=== PATIENT | female | born 1995 | race Two or more races ===

== ENCOUNTER 2025-02-20 14:19 | Outpatient (AMB) | payer OTHER, SELFPAY ==
[2025-02-20 14:28] VITALS: BP 96/62; PULSE 80; O2SAT 98; BMI 30.4
--- NOTE | 2025-02-20 14:28 | A.OFFVIS_ITS ---
Vital Signs 02/20/25 14:28 Height 4 ft 10 in Weight 145 lb 8.081 oz BMI 30.4 BP 96/62 Blood Pressure Location Rt brachial Position Sitting Pulse 80 Pulse Source Pulse Oximeter Pulse Oximetry (%) 98 Oxygen Delivery Method Room Air Intake Visit Reasons: Asthma Allergies No Known Allergies Allergy (Verified 02/20/25 14:31) HPI Comments Details: The patient is a 29 year woman currently in her 1st trimester with a known history of asthma. the patient has had lifelong asthma. She does have allergy triggers in addition to exacerbations with a exposure to any viral syndromes. She has been better on Symbicort. She does have a rescue inhaler and she does use it couple times a week. Currently she is in her 1st trimester . She has 1 healthy child and she did fairly well during that . Currently patient does complaint of worsening chest tightness with any activity along with the other triggers. Denies any significant reflux disease at this time. Will monitor for that during her as it progresses. For now will hold off on PFTs and chest x-rays due to her . Will plan to do blood work to assess her asthma phenotype. The patient also will be continue her current respiratory regimen as it is safe during her . I do believe the singular be a good option to try to stabilize her asthma further with the safe medication category B for . 08/27/2023 the patient is here for a pulmonary follow-up visit. Overall she is doing very well. She is using the Symbicort twice a day. Has not required her rescue inhaler. The patient continues to do well with the currently in her 2nd trimester. We did review her blood work. She has severe allergies to both cats and dogs. Although allergies known does the most significant. She needs to minimize exposure to cats and dogs specially due to the severity of her reaction. The patient also would benefit from a and EpiPen after she delivers her baby. Patient can also consider biologic therapy such as Xolair as a good option to minimize severe allergic reactions. Will go ahead and follow in 3-4 months or sooner if any issues arise. 12/24/2023 the patient is here for a pulmonary follow-up visit. The patient has been doing better. She did have an asthma exacerbation. She did require her respiratory therapy more frequent. The patient continues on the Symbicort twice a day. She does have the nebulizer she has been using it more often. Now she is back to her baseline. She has no longer on prednisone. No additional imaging studies based on her . She is now 30 weeks' gestation. at this point will not going to make any medication changes. Although if her symptoms worsen she will call the office so we can further adjust her medications accordingly. She does have a peak flow and she can monitor the peak flows. If the peak flows drop from baseline then she is to call the office for further evaluation as well. 08/25/2024 the patient is here for a pulmonary follow-up visit. Overall she is doing well. She did give to healthy baby girl. She is still b reastfeeding. Continues use her Symbicort and also has a rescue medication. She also singular although she has not been using it as regularly. She did have 1 episode at the gym where all of a sudden she felt she could not breathe and felt nauseous. She was able to use her rescue inhaler and did help her symptoms. Although she became very concerned because her symptoms were significant. We did teach her how to use the EpiPen. She has not required it. At this point she will continue to breastfeed. Will plan to follow-up in 6 months I which time if she is done will talk about biologic therapies. I do believe that with her significant allergies and ongoing need for her albuterol suggesting that she has uncontrolled asthma that she will benefit from biologic therapies at this time. Will request blood work closer to the time and we will follow-up with her in 6 months. If she has any worsening symptoms prior to that she will call for an earlier assessment. 02/20/2025 the patient is here for a pulmonary follow-up visit. She continues to do very well. Her baby is healthy. The patient has been using her Symbicort. Also needs her rescue inhaler refilled. She does have a nebulizer. Typically she gets sick more in the winter when she is exposed to viral syndromes. Now the springtime she typically does okay. Her blood work did demonstrating an elevated IgE level her eosinophils have been normal. Seems like her respiratory therapy seems to be holding her steady. She is concerned about using Singulair because of the risk of depression especially now caring for baby. That is okay. She can also consider using the singular seasonally if necessary. The patient denies any other complaints. Follow-up in a year's time. If she develops any worsening issues she will call for an earlier assessment. [facility] Medical History (Updated 01/24/25 @ 13:31 by Monica Carpenter) Chronic allergic rhinitis Constipation by delayed colonic transit Loss of consciousness Class 2 obesity with body mass index (BMI) of 36.0 to 36.9 in adult Asthma Surgical History (Updated 01/24/25 @ 13:31 by Monica Carpenter) History of laparoscopic cholecystectomy History of Family History (System 01/24/25 @ 13:31 by Monica Carpenter) Father Diabetes Mother Epilepsy Social History Housing: Apartment Alcohol intake: never Patient Tobacco Use Status: Never used Tobacco e-Cigarette/Vaping Use: Never Used Second Hand Smoke Exposure: No service: No Current occupational status: unemployed Cognitive needs: No Hearing needs: No Vision needs: No Review of Systems Const Denies chills, Denies fatigue, Denies fever(s), Denies weight gain and Denies weight loss Eyes Denies change in vision ENT Denies dizziness Card Denies chest pain, Denies leg edema, Denies lightheadedness, Denies palpi tations, Denies dyspnea on exertion, Denies orthopnea and Denies other Resp Denies cough, Denies dyspnea on exertion and Reports wheezing GI Denies hematochezia and Denies change in stool character Musc Denies abnormal gait, Denies muscle weakness, Denies numbness, Denies radiating pain into limb and Denies tingling Skin/Breast Denies rash Neuro Denies abnormal gait, Denies dizziness, Denies numbness and Denies tingling Endo Denies fatigue and Denies palpitations Rodrigue/Lymph Denies easy bruising Aller/Immun Reports wheezing Physical Exam Vital Signs: Last Vital Signs Pulse 80 02/20/25 14:28 BP 96/62 02/20/25 14:28 Pulse Ox 98 02/20/25 14:28 Oxygen Delivery Method Room Air 02/20/25 14:28 BMI result Body Mass Index 30.4 Const General: comfortable HEENT Head: Yes normocephalic Neck Neck: Yes supple Chest Chest palpation & inspection: normal inspection of the chest Resp Effort & Inspection: normal respiratory effort and No prolonged expiratory phase Auscultation: clear to auscultation bilaterally, no rhonchi and no wheezes Cardio Rate: regular rate Rhythm: regular rhythm Heart sounds: S1 normal heart sound present and S2 normal heart sound present GI Palpation (GI): Soft to palpation Skin General skin exam: no rashes or lesions noted Extrem General: Yes no clubbing, cyanosis or edema Assessment & Plan Assessment & Plan (1) Asthma: Code(s): J45.909 - Unspecified asthma, uncomplicated Category: Medical Qualifiers: Asthma severity: moderate Asthma persistence: persistent Asthma complication type: uncomplicated Qualified Code(s): J45.40 - Moderate persistent asthma, uncomplicated (2) Chronic allergic rhinitis: Code(s): J30.9 - Allergic rhinitis, unspecified Category: Medical Plan continue Symbicort JULIO as needed hold singulair for now EPI pen provided F/U 12 months Medications: Changed From budesonide-formoterol 80-4.5 mcg/actuation 1 inh inhalation BID 30 days 10.2 grams 1RF To budesonide-formoterol 80-4.5 mcg/actuation 2 inhalations inhalation BID 10.2 grams 11RF 30 days Refilled Ventolin HFA 90 mcg/actuation (albuterol sulfate) 2 puffs inhalation Q6H PRN 8 grams 11RF shortness of breath or wheezing 30 days NS albuterol sulfate 2.5 mg (3 mL) inhalation Q6H PRN 180 mL 11RF shortness of breath or wheezing 30 days Coding Level of Care Code Est Pt Level 4 (69881) Diagnoses Moderate persistent asthma without complication J45.40 Asthma severity: moderate Asthma persistence: persistent Asthma complication type: uncomplicated Chronic allergic rhinitis J30.9 Time Spent (min) 16
--- OUTSIDE RECORDS SUMMARY | 2025-02-20 17:32 | XMS_ITS | Clinical Summary ---
Author Organization [employer] Address [address] [place] [address] Care Team Providers Care Finger Cobbler Name Role Phone Unavailable Primary Care Provider Unavailabl e Immunizations Name Administration Dates Next Due DTP 05/25/1997, 4,01/23/1994,06/18 HPV, Quadrivalent 04/06/2008,12/06/2007,08/30/20 07 Hep B, Adolescent or Pediatric 06/17/1998,1996,05/25/1997 Hib (PRP-T) 08/12/1994,01/23/1994,1993 IPV 05/25/1997, 4,01/23/1994,06/18 Influenza Injectable Quadriv alant Preservative Free IIV4 MDCK 07/20/2023,08/10/2018 Influenza, IIV3, injectable 07/15/2017,1 12/11/2007,12/06/2007,09/17 Influenza, Split (incl. nica fied surface antigen) 09/24/2010 MMR 05/25/1997,08/12/1994 Meningococcal MCV4P [id number] 08/30/2007 Novel [id number], all formulations 09/18/2009 Pfizer Covid-19 Vaccine 12+ 11/09/2023 Tdap 10/25/2023, 8,04/15/2017,05/06 Varicella 09/18/2009,12/16/2004 Social History Tobacco Use Types Packs/Day Years Used Date Smoking Tobacco: Never Assessed Comments Unknown Sex and Gender Information Value Date Recorded Sex Assigned at Female 09/07/2022 10:18 AM EDT Legal Sex Female 10:18 AM EDT Gender Identity Female 09/07/2022 10:18 AM EDT Sexual Orientation Straight 09/07/2022 10 :18 AM EDT Plan of Treatment Health Maintenance Due Date Last Done Comments Depression Screening 1993 HIV Screening 1993 SDOH Screening 1993 Alcohol/Substance Use Screening 2005 Tobacco Screening 2005 Family Planning (PISQ) 2008 Hepatitis C Screening 2011 Pap Smear 2014 Cervical Cancer Screening 2023 HPV/Cotest 2023 COVID-19 Vaccine ( season) 2024 11/09/2023, 03/20/2021, 02/20/2021 Influenza Vaccine (#1) 2024 , 08/10/2018, 07/15/2017, Additional history exists DTaP/Tdap/Td Vaccines (9 - Td or Tdap) 10/25/2033 10/25/2023, 09/08/2018, 04/15/2017, Additional history exists Zoster Vaccines (1 of 2) 2043 RSV Patients and Patients Aged 60 years or older (1 - 1-dose 75+ series) 2068 HIB Vaccines Completed 08/12/1994, 01/06, 1993 IPV Vaccines Completed 05/25/1997, 03/1994, 01/23/1994, Additional history exists Hepatitis B Vaccines Completed 06/17/1998, 06/27/1997, 05/25/1997 Meningococcal Vaccine Aged Out 08/30/2007 No edil kacey eligible based on patient's age to complete this topic HPV Vaccines Completed 04/06/2008, 11/09, 08/30/2007 Hepatitis A Vaccines Aged Out No long er eligible based on patient's age to complete this topic Pneumococcal Vaccine: Pediatrics (0 to 5 Years) and At-Risk Patients (6 to 49) Years) Aged Out No longer eligible based on patient's age to complete this topic RSV under 20 months Aged Out No longe r eligible based on patient's age to complete this topic Rotavirus Vaccines Aged Out No longer eligible based on patient's age to complete this topic Insurance [facility]
--- OUTSIDE RECORDS SUMMARY | 2025-02-20 17:32 | XMS_ITS | Clinical Summary ---
Author Organization [facility] Address [address] [place] [address] Phone Care Team Providers Care Core Inspector Name Role Phone Amber Lomax MD Primary Care Provider [phone] Allergies Active Allergy Reactions Criticality Noted Date Comments Cat Dander Wheezing 07/06/2023 asthma Clindamycin Swelling 11/10/2024 Dog Dander Wheezing 07/06/2023 asthma Medications UNABLE TO FIND Med Name: IUD'S IU By intrauterine route. Active PNV no.95/ferrous fum/folic ac ( ORAL) Vit-Fe Fumarate-FA ( Plus) 27-1 MG Tab Sig: TAKE 1 TABLET BY MOUTH EVERY DAY Active hydrOXYzine pamoate (VISTARIL) 25 mg capsule Take 1 Capsule by mouth at bedtime as needed for Anxiety (and sleep). 03/14/20 24 Active norethindrone (DANDY,VIKA, RUTH,MICRON OR) 0.35 mg tablet Take 1 Tablet by mouth daily for 360 days. 01/31/20 24 Active pyridoxine (VITAMIN B-6) 25 mg tablet Take 1 Tablet by mouth 4 times daily (before meals and nightly) for 360 days. 08/20/20 23 Active aspirin 81 mg EC tablet Take 2 Tablets by mouth daily. 08/17/20 23 Active loratadine (CLARITIN) 10 mg tablet Take 1 Tablet by mouth daily for 360 days. 07/06/20 23 Active EPINEPHrine (EPIPEN) 0.3 mg/0.3 mL injection INJECT 0.3 MG INTRAMUSCULARLY EVERY 10 MINUTES NEEDED FOR ANAPHYLAXIS FOR 30 DAYS 08/25/20 24 Active cholecalcifero l (VITAMIN D-3) 50 mcg (2,000 unit) capsule Take 1 capsule (2,000 Units total) by mouth 1 (one) time each day. 90 capsule 3 11/06/20 24 025 Active docusate sodium (COLACE) 100 mg capsule Take 1 capsule (100 mg total) by mouth 2 (two) times a day. 180 each 3 11/06/20 24 025 Active ferrous sulfate 325 mg (65 mg elemental iron) tablet TAKE 1 TABLET BY MOUTH EVERY OTHER DAY 45 tablet 1 11/23/19 25 Active Active Problems Problem Noted Date Diagnosed Date Elevated platelet count 07/30/2023 Overview (09/26/2024): 07/09/23 platelets 450 07/27/23 platelets 450 12/07/22-platlets 345-resolved Hemorrhoids during 07/28/2023 Overview (09/26/2024): Colace, witch janet and Preparation H encouraged Reviewed comfort measures 08/17- resolved Elevated WBC count 07/23/2023 Overview (09/26/2024): Lab Results Component Value Date WBC 17.4 07/09/2023 HGB 12.3 07/09/2023 HCT 36.3 07/09/2023 MCV 84.0 07/09/2023 PLTCT 450 07/09/2023 Repeat Urine culture negative, 07/23/2023 repeat CBC ordered. Lab Results Component Value Date WBC 15.5 07/27/2023 HGB 11.4 07/27/2023 HCT 34.2 07/27/2023 MCV 84.7 07/27/2023 PLTCT 450 07/27/2023 Alpha thalassemia silent carrier 07/20/2023 Overview (09/26/2024): FOB testing- positive Reproductive risk, not at increased risk for alpha thalalsemia. Syncope 07/20/2023 Overview (09/26/2024): 07/20/2023 patient reports feeling weak and passing out a few times, last time was 3 days ago. She was not seen in the ED. Referral to PCP ordered. 10/13/23- denies further syncopal episodes Depression affecting pregnan cy in first trimester, antepartum 07/06/2023 Overview (09/26/2024): Patient tearful; /FOB left patient after 14yrs marriage. Looking for therapist. 07/20/2023 at IP- EPDS 24, declines SI/HI. Offered referral for therapy she declines, main concern is lack of sleep. Vistaril ordered. Offered antidepression medicine and she declines. 08/17- improving- denies SI/HI, continues to declines meds or referral Obesity in 07/06/2023 Overview (09/26/2024): HgbA1C and 1 hour GTT at initial labs - 07/09 HGBA1C 5.3, 1 hr 91 ASA 162mg at 12 weeks until delivery - Ordered 08/17 Detailed anatomy ultrasound- scheuled Repeat GTT 24-28 weeks if early is normal Pre-preg BMI 35-39.9: NST weekly at 37 weeks Pre-preg BMI >40: NST weekly at 34 weeks Pre-preg BMI >45: NST weekly at 32 weeks Growth US at 32 and 36 weeks for BMI >40 BMI of 50 by 28wks transfer to [facility] DVT prophylaxis- Lovenox if CS and BMI >35 Urinary tract infection in m other during first trimester of 05/28/2023 Overview (09/26/2024): Ecoli.- Treated SAGAR in 4 weeks- mix growth Primary oligomenorrhea 05/19/2023 Overview (09/26/2024): Last Assessment & Plan: At this time, clearly secondary to . However, based on history, she does likely meet criteria for PCOS. Lab testing to be deferred until after . 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 If labs positive patient will need MFM consult. 07/26/2023 labs ordered Encounters Date Type Department Care Team Description 12/12/2024 6:20 PM EST - 12/12/2024 11:59 PM EST Hospital Encounter Radiology Department - [address] [phone] Menorrhagia with irregular cycle Discharge Disposition: Home or Self Care from Last 3 Months Immunizations Name Administration Dates Next Due Influenza Quadravalent, MDCK , 0.5ml, preservative free (Flucelvax) 6mo and older 07/20/2023,08/10/2018 Tdap Tetanus diptheria acell ular pertussis (Boostrix; Adacel) 7yo and older 10/25/2023,09/08/2018,04/15/2017 Surgical History Surgery Date Site/Laterality Comments CHOLECYSTECTOMY 2012 PROCEDURE: HISTORICAL CHOLECYSTECTOMY CHOLECYSTECTOMY PROCEDURE: MT LAPAROSCOPY SURG CHOLECYSTECTOMY SECTION PROCEDURE: MT DELIVERY ONLY; COMMENT: 2018 WISDOM TOOTH EXTRACTION 04/2023 PROCEDURE: HISTORICAL WISDOM TEETH EXTRACTION Medical History Medical History Date Comments Asthma DX:Asthma Anemia in 06/25/2017 DX:Anemia in History of insulin resistance DX :History of insulin resistance; COMMENT: started when she was [age]yo Family History Medical History Relation Name Comments Breast cancer Aunt Other: shunt in brain to [place] in fluid Brother Diabetes Father Other: bipolar typeII Father Other: of overdose Maternal Grandfather Other: of HIV Maternal Grandmother Arthritis Mother Asthma Mother Breast cancer Other pt reports mul tiple relatives on mother's side with breast cancer Other: of stroke Paternal Grandfather Other: of stroke Paternal Grandmother Breast cancer Sister Cancer of Small Bowel Neg Hx Colon cancer Neg Hx Kidney cancer Neg Hx Ovarian cancer Neg Hx Pancreatic cancer Neg Hx Uterine cancer Neg Hx Relation Name Status Comments Aunt Brother Alive Father Alive Maternal Grandfather Maternal Grandmother Mother Alive Other Paternal Grandfather Paternal Grandmother Sister Alive Social History Tobacco Use Types Packs/Day Years Used Date Smoking Tobacco: Never Smokeless Tobacco: Never Alcohol Use Standard Drinks/Week Comments No 0 (1 standard drink = 0.6 oz pur e alcohol) Comments Unknown Sex and Gender Information Value Date Recorded Sex Assigned at Not on file Legal Sex Female 10:06 PM EST Gender Identity Not on file Sexual Orientation Not on file Obstetrics History Para Term AB IAB SAB Ectopic Multiple Livin g Live Births 9 3 3 6 6 3 3 Date Outcome GA Total Labor Labor/2nd/3rd Weight Sex Type Anes PTL Maureen A1 A5 Name Clin SAB Decea sed SAB Decea sed SAB Decea sed SAB Decea sed SAB Decea sed SAB Decea sed 2016 Term 40w 2d 3317 g (117 oz) F CS-Un spec Epidur al N Livin g 8 9 Dailan ys Michael Rothman Complications:Failure to Pro agapito in Second Stage Delivery Location:[facility] 2018 Term 40w 6d 3856 g (136 oz) M CS-Un spec Spinal Livin g [address] Lynette benavidez [place] Delivery Location:[facility] 2023 Term 39w 0d 3459 g (122 oz) F CS-LT ranv Spinal N Livin g Rick Del Real MD Complications:None Delivery Location:[facility] Last Filed Vital Signs Vital Sign Reading Time Taken Comments Blood Pressure 105/71 11/06/2024 2:27 PM EST Pulse 83 06/09/2024 1:23 PM EDT Temperature - - Respiratory Rate - - Oxygen Saturation - - Inhaled Oxygen Concentration - - Weight 73.9 kg (163 lb) 11/06/2024 2:27 PM EST Height 147.3 cm (4' 10 ) 11/06/2024 2:27 PM EST Body Mass Index 34.07 11/06/2024 2:27 PM EST Plan of Treatment Health Maintenance Due Date Last Done Comments Cholesterol Screening (Lipid Panel) 10/10/2022 HIV Screening 10/10/2022 Social Influencers of Health Screening 10/10/2022 COVID-19 Vaccine ( season) 2024 11/09/2023, 03/20/2021, 02/20/2021 Depression Screening 01/23/2025 01/24/2024 Cervical Cancer Screening: HPV 11/06/2029 11/06/2024, 03/26/2021 DTaP,Tdap,and Td Vaccines (9 - Td or Tdap) 10/25/2033 10/25/2023, 09/08/2018, 04/15/2017, Additional history exists HIB Vaccines Completed 08/12/1994, 01/06, 1993 IPV Vaccines Completed 05/25/1997, 03/1994, 01/23/1994, Additional history exists MMR Vaccines Completed 05/25/1997, 08/12/1994 Hepatitis B Vaccines Completed 06/17/1998, 06/27/1997, 05/25/1997 Meningococcal ACWY Vaccine Aged Out 08/30/2007 N o longer eligible based on patient's age to complete this topic HPV Vaccines Completed 04/06/2008, 11/09, 08/30/2007 Varicella Vaccines Completed 09/18/2009, 12/16/2004 Hepatitis C Screening Completed 07/09/2023 Influenza Vaccine Completed 08/17/2024, , 08/10/2018, Additional history exists Hepatitis A Vaccines Aged Out No long er eligible based on patient's age to complete this topic Meningococcal B Vaccine Aged Out No l onger eligible based on patient's age to complete this topic Pneumococcal Vaccine: Pediatrics (0 to 5 Years) and At-Risk Patients (6 to 64 Years) Aged Out No longer eligible based on patient's age to complete this topic RSV Immunization Patients Under 20 months Aged Out No longer eligible based on patient's age to complete this topic Procedures Procedure Name Priority Date/Time Associated Diagnosis Comments US DUPLEX ABDOMEN/PELVIS/RETRO COMPLETE Routine 12/12/2024 6:57 PM EST Menorrhagia with irregular cycle US PELVIS NON OB COMPLETE W TRANSVAGINAL Routine 12/12/2024 6:57 PM EST Menorrhagia with irregular cycle HPV WITH REFLEX GENOTYPE Routine 11/06/2024 3:53 PM EST Encounter for gynecological examination without abnormal finding DEPRESSION SCREENING Routine 01/24/2024 HEPATITIS C SCREENING Routine 07/09/2023 from Last 3 Months or Most Recently Relevant to Health Maintenance Results * US Pelvis Non OB Complete w Transvaginal (12/12/2024 6:57 PM EST) Anatomical Region Laterality Modality Body, Pelvis Ultrasound 12/13/2024 8:02 AM EST Impressions 12/13/2024 8:05 AM EST Unremarkable sonographic appearance of the uterus and ovaries. -------- FINAL REPORT -------- Dictated By: Yosi Giron Dictated Date: 12/13/2024 08:02 ET Assigned Physician: Yosi Giron Reviewed and Electronically Signed By: Yosi Giron Signed Date: 12/13/2024 08:05 ET Workstation ID: [id number] Transcribed By: Self Edit Transcribed Date: 12/13/2024 08:02 ET Narrative 12/13/2024 8:05 AM EST EXAM(s): ?? US PELVIS NON OB COMPLETE W TRANSVAGINAL, US DUPLEX ABDOMEN/PELVIS/RETRO COMPLETE COMPARISON: None HISTORY: pelvic pain FINDINGS: UTERUS: The uterus is retroflexed and measures 6.6 x 4.2 x 4.8 cm, volume of 69.7 cm3, and demonstrates homogeneous ??myometrial echotexture. The endometrial echocomplex measures 0.2 cm in thickness. ??Intrauterine device terminates at 0.3 cm from the fundic end of the endometrial cavity. RIGHT OVARY: 3.1 x 1.8 x 1.8 cm, volume of 5.3 cm3. Normal follicular appearance. Normal arterial and venous flow is demonstrated with color and spectral Doppler. LEFT OVARY: 3.4 x 2.5 x 1.6 cm, volume of 7.1 cm3. Normal follicular appearance. Normal arterial and venous flow is demonstrated with color and spectral Doppler. PELVIS: No free fluid. Procedure Note Yosi Giron MD - 12/13/2024 EXAM(s): US PELVIS NON OB COMPLETE W TRANSVAGINAL, US DUPLEXABDOMEN/PELVIS/RETRO COMPLETE COMPARISON: None HISTORY: pelvic pain FINDINGS: UTERUS: The uterus is retroflexed and measures 6.6 x 4.2 x 4.8 cm, volumeof 69.7 cm3, and demonstrates homogeneous myometrial echotexture. Theendometrial echocomplex measures 0.2 cm in thickness. Intrauterine deviceterminates at 0.3 cm from the fundic end of the endometrial cavity. RIGHT OVARY: 3.1 x 1.8 x 1.8 cm, volume of 5.3 cm3. Normal follicularappearance. Normal arterial and venous flow is demonstrated with color andspectral Doppler. LEFT OVARY: 3.4 x 2.5 x 1.6 cm, volume of 7.1 cm3. Normal follicularappearance. Normal arterial and venous flow is demonstrated with color andspectral Doppler. PELVIS: No free fluid. IMPRESSION: Unremarkable sonographic appearance of the uterus and ovaries. -------- FINAL REPORT -------- Dictated By: Yosi Giron Dictated Date: 12/13/2024 08:02 ET Assigned Physician: Yosi Giron Reviewed and Electronically Signed By: Yosi Giron Signed Date: 12/13/2024 08:05 ET Workstation ID: [id number] Transcribed By: Self Edit Transcribed Date: 12/13/2024 08:02 ET us Jayde Rosenberg CNM IMG US PROCEDURES Final Result * US Duplex Abdomen/Pelvis/Retro Complete (12/12/2024 6:57 PM EST) Anatomical Region Laterality Modality Body Ultrasound 12/13/2024 8:02 AM EST Impressions 12/13/2024 8:05 AM EST Unremarkable sonographic appearance of the uterus and ovaries. -------- FINAL REPORT -------- Dictated By: Yosi Giron Dictated Date: 12/13/2024 08:02 ET Assigned Physician: Yosi Giron Reviewed and Electronically Signed By: Yosi Giron Signed Date: 12/13/2024 08:05 ET Workstation ID: [id number] Transcribed By: Self Edit Transcribed Date: 12/13/2024 08:02 ET Narrative 12/13/2024 8:05 AM EST EXAM(s): ?? US PELVIS NON OB COMPLETE W TRANSVAGINAL, US DUPLEX ABDOMEN/PELVIS/RETRO COMPLETE COMPARISON: None HISTORY: pelvic pain FINDINGS: UTERUS: The uterus is retroflexed and measures 6.6 x 4.2 x 4.8 cm, volume of 69.7 cm3, and demonstrates homogeneous ??myometrial echotexture. The endometrial echocomplex measures 0.2 cm in thickness. ??Intrauterine device terminates at 0.3 cm from the fundic end of the endometrial cavity. RIGHT OVARY: 3.1 x 1.8 x 1.8 cm, volume of 5.3 cm3. Normal follicular appearance. Normal arterial and venous flow is demonstrated with color and spectral Doppler. LEFT OVARY: 3.4 x 2.5 x 1.6 cm, volume of 7.1 cm3. Normal follicular appearance. Normal arterial and venous flow is demonstrated with color and spectral Doppler. PELVIS: No free fluid. Procedure Note Yosi Giron MD - 12/13/2024 EXAM(s): US PELVIS NON OB COMPLETE W TRANSVAGINAL, US DUPLEXABDOMEN/PELVIS/RETRO COMPLETE COMPARISON: None HISTORY: pelvic pain FINDINGS: UTERUS: The uterus is retroflexed and measures 6.6 x 4.2 x 4.8 cm, volumeof 69.7 cm3, and demonstrates homogeneous myometrial echotexture. Theendometrial echocomplex measures 0.2 cm in thickness. Intrauterine deviceterminates at 0.3 cm from the fundic end of the endometrial cavity. RIGHT OVARY: 3.1 x 1.8 x 1.8 cm, volume of 5.3 cm3. Normal follicularappearance. Normal arterial and venous flow is demonstrated with color andspectral Doppler. LEFT OVARY: 3.4 x 2.5 x 1.6 cm, volume of 7.1 cm3. Normal follicularappearance. Normal arterial and venous flow is demonstrated with color andspectral Doppler. PELVIS: No free fluid. IMPRESSION: Unremarkable sonographic appearance of the uterus and ovaries. -------- FINAL REPORT -------- Dictated By: Yosi Giron Dictated Date: 12/13/2024 08:02 ET Assigned Physician: Yosi Giron Reviewed and Electronically Signed By: Yosi Giron Signed Date: 12/13/2024 08:05 ET Workstation ID: [id number] Transcribed By: Self Edit Transcribed Date: 12/13/2024 08:02 ET Jayde Rosenberg CNM IMG US PROCEDURES Final Result * HPV with reflex genotype (11/06/2024 3:53 PM EST) HPV Negative Negative LAB MICROBIOLOGY METHOD 11/10/2024 2:02 PM EST [facility] Brushing/Spatula Cervix uteri structure / Unknown 11/06/2024 3:53 PM EST 11/09/2024 7:41 AM EST Jayde Rosenberg [facility] MOLECULAR DIAGNOSTICS ORDER JILL Final Result [facility] [address] [place] [address], * Depression Screening (01/24/2024) Depression Screening abstracted Historical Provider HEALTH MAINTENANCE Final Result * Hepatitis C Screening (07/09/2023) Hepatitis C Screening abstracted Historical Provider HEALTH MAINTENANCE Final Result from Last 3 Months or Most Recently Relevant to Health Maintenance Insurance [facility] Care Teams Core Inspector Relationship Specialty Start Date End Date Amber Lomax MD [address] [place] [address] , [address] Physician [facility] [place] MD PCP - General Internal Medicine 09/06/18
== END 2025-02-20 15:04 | disposition home or self-care (01) ==
LOC: HO.HPS 14:19
PROVIDERS: PCP Internal Medicine; Visit Provider Hospitalist
DX: J45.40 Moderate persistent asthma, uncomplicated (principal); J30.9 Allergic rhinitis, unspecified
CPT/HCPCS: 99214

== ENCOUNTER → 2025-02-20 14:19 | Outpatient (BNVA) | payer OTHER, SELFPAY | PROVIDERS: PCP Internal Medicine; Visit Provider Hospitalist | DX: J45.40 Moderate persistent asthma, uncomplicated (principal); J30.9 Allergic rhinitis, unspecified | CPT/HCPCS: 99212 ==

== ENCOUNTER 2025-08-23 10:08 | Outpatient (AMB) | payer OTHER, SELFPAY ==
--- NOTE | 2025-08-23 10:15 | A.OFFPC_ITS ---
Vital Signs 08/23/25 10:22 Height 4 ft 10 in Weight 150 lb BMI 31.3 BP 128/72 Blood Pressure Location Lt brachial Position Sitting Pulse 70 Pulse Source Pulse Oximeter Temp 97.1 F Temp Source Temporal Artery Scan Pulse Oximetry (%) 98 Oxygen Delivery Method Room Air Intake Visit Reasons: Annual Exam Intake Note: Patient is here today for a physical. Spiral Weaver Required: No Panel Coverer: Not Required per policy Accompanied by: Self / Same As Patient Allergies No Known Allergies Allergy (Verified 08/23/25 10:37) Medication List - Last Reconciled 08/23/25 by Amber Lomax MD albuterol sulfate 2.5 mg (3 mL) inhalation Q6H PRN 30 days budesonide-formoterol 80-4.5 mcg/actuation 2 inhalations inhalation BID 30 days epinephrine (EpiPen 2-Arnie) 0.3 mg (0.3 mL) IM Q10M PRN 30 days hydroxyzine pamoate 25 mg PO DAILY PRN inhalational spacing device (Aerochamber MV spacer) As directed montelukast 10 mg PO BEDTIME nebulizers As directed PNV,calcium 09-gkne-cqxor acid 27 mg iron- 1 mg ( Vitamins Plus Low Iron) 1 tab PO DAILY Ventolin HFA 90 mcg/actuation (albuterol sulfate) 2 puffs inhalation Q6H PRN 30 days NS Tobacco use date assessed: 08/23/25 Dental Screening Dental Screen Date: 08/23/25 Did you have a dental visit in the last 12 months?: No Did you have a dental problem in the last 6 months where you did not have access to dental care?: No Was dental information given to patient?: Patient has dentist HPI HPI Comments History of Present Illness Details The patient is a 30-year-old female presenting for a wellness visit and management of insulin resistance. The patient has been experiencing challenges with weight loss due to insulin resistance, despite engaging in regular cardiovascular and weight training exercises. She has been on a sugar-free diet for a year and is concerned about the risk of developing diabetes. The patient reports mild depression with a PHQ-9 score of 3, showing slight improvement from previous evaluations. She has been managing her stress better, which has contributed to her improvement. Preventative care measures include a tetanus vaccination received in 2022, with the next due in 2032, and an influenza vaccination planned for this visit. - Tetanus vaccination administered in , next due in 2032 - Influenza vaccination scheduled for is visit [facility] Medical History Chronic allergic rhinitis Constipation by delayed colonic transit Loss of consciousness Class 2 obesity with body mass index (BMI) of 36.0 to 36.9 in adult Asthma Surgical History History of laparoscopic cholecystectomy History of Family History Father Diabetes Mother Epilepsy Social History Housing: Apartment Alcohol intake: never Patient Tobacco Use Status: Never used Tobacco e-Cigarette/Vaping Use: Never Used Second Hand Smoke Exposure: No service: No Current occupational status: unemployed Cognitive needs: No Hearing needs: No Vision needs: No Questionnaire PHQ-9 Over the last 2 weeks, how often have you been bothered by any of the following problems? 1. Little interest or pleasure in doing things: not at all 2. Feeling down, depressed, or hopeless: not at all 3. Trouble falling or staying asleep, or sleeping too much: several days 4. Feeling tired or having little energy: not at all 5. Poor appetite or overeating: several days 6. Feeling bad about yourself - or that you are a failure or have let yourself or your family down: not at all 7. Trouble concentrating on things, such as reading the newspaper or watching television: not at all 8. Moving or speaking so slowly that other people could have noticed. Or the opposite - being so fidgety or restless that you have been moving around a lot more than usual: several days 9. Thoughts that you would be better off or of hurting yourself in some way: not at all Total score: 3 Depression Screening Interpretation: Positive Depression Screening Follow-up: Existing condition and Follow-up Visit Requested Depression Screening Done: Yes 15654 - PHQ-9 Billing: Yes Source: Developed by Drs. Yoel Ochoa, Valencia Bernard, Corona Krishna and colleagues, with an educational smita from [employer]. Thrive Questionnaire Date Thrive assessed: 08/23/25 I am a: Patient What is your living situation today?: I have a steady place to live Within the past 12 months, did the food you bought not last and you didn't have the money to get more?: Never true Within the past 12 months, did you worry whether your food would run out before you got money to buy more?: Never true Do you have trouble paying for medicines?: No Do you have trouble getting transportation to medical appointments?: No Do you have trouble paying your heating and electricity bill?: No Do you have trouble taking care of your child, family member or friend?: No Do you have trouble with day-to-day activities such as bathing, preparing meals, shopping, managing finances, etc.?: No Are you currently unemployed and looking for a job?: No Are you interested in more education?: No Please select the resources that you would like help with: None Currently or been in a relationship where the following occur: No concerns reported THRIVE Score: 0 AUDIT C Alcohol Use Questionnaire (AUDIT-C) 1. How often do you have a drink containing alcohol?: Never 3. How often do you have six or more drinks on one occasion?: Never Total Score: 0 Score Reviewed/Action Taken: No DANDY-7 AMB Questionnaire DANDY-7 Date DANDY - 7 assessed: 08/23/25 Feeling nervous, anxious, or on edge: 0 = Not at all Not being able to stop or control worryin = Not at all Worrying too much about different things: 0 = Not at all Trouble relaxin = Not at all Being so restless that it is hard to sit still: 0 = Not at all Becoming easily annoyed or irritable: 0 = Not at all Feeling afraid as if something awful might happen: 0 = Not at all Total DANDY-7 score (0-4 normal; 5-9 mild; 10-14 moderate; 15-21 severe): 0 Source: Developed by Drs. Yoel Ochoa, Valencia eBrnard, Corona Krishna and colleagues, with an educational smita from [employer]. DANDY-7 Assessment Billing DANDY-7 Assessment Tool: DANDY-7 Assessment 59058 Review of Systems Const All systems reviewed & are unremarkable except as noted in HPI and below Card Denies chest pain at rest, Denies chest pain with activity, Denies edema, Denies irregular heart rhythm, Denies claudication, Denies dyspnea, Denies dyspnea on exertion, Denies orthopnea, Denies paroxysmal nocturnal dyspnea and Denies slow heart rate Resp Denies cough, Denies dyspnea and Denies dyspnea on exertion GI Denies abdominal pain, Denies change in bowel habits, Denies excessive flatus, Denies nausea and Denies vomiting Denies urinary incontinence, Denies urinary hesitancy and Denies urinary urgency Physical exam (Primary Care) Vital Signs: Last Vital Signs Temp 97.1 F 08/23/25 10:22 Pulse 70 08/23/25 10:22 BP 128/72 08/23/25 10:22 Pulse Ox 98 08/23/25 10:22 Oxygen Delivery Method Room Air 08/23/25 10:22 BMI result Body Mass Index 31.3 BMI Assessment/Plan discussion: High BMI High, discussed plan: lifestyle, weight reduction, dietary and physical activity Tobacco/Smoking Status: Tobacco use Status Tobacco use date assessed 08/23/25 08/23/25 10:25 Patient Tobacco Use Status Never used Tobacco 08/23/25 10:15 e-Cigarette/Vaping Use Never Used 08/23/25 10:15 PHQ-9: PHQ-9 Score PHQ-9: Total score 3 08/23/25 10:53 Depression Screening Interpretation: Positive Depression Screening Follow-up: Existing condition and Follow-up Visit Requested Thrive Assessment: Date of Thrive Assessment Date Thrive assessed 08/23/25 08/23/25 10:25 Currently or been in a relationship where the following occur: No concerns reported [facility] Head: Yes normal to inspection, Yes normocephalic and Yes atraumatic Ears: external ears normal Eyes General: appearance normal, both eyes and all related structures Eyelids: Yes eyelids normal Conjunctivae: conjunctivae normal Neck Neck: Yes normal visual inspection and Yes supple Resp Effort & Inspection: normal respiratory effort Auscultation: clear to auscultation bilaterally Cardio Jugular venous distension: no JVD Rate: regular rate Rhythm: regular rhythm Heart sounds: S1 normal heart sound present and S2 normal heart sound present GI Inspection: Yes normal to inspection Palpation (GI): Soft to palpation and nontender Auscultation: normal bowel sounds Skin General skin exam: no rashes or lesions noted Neuro General: no focal motor deficits Extrem General: Yes full ROM Psych Appearance: grossly normal Office Procedures Flu Questionnaire Does the patient have a severe egg allergy?: No Does the patient have severe life threatening allergies?: No Does the patient have a fever or illness today?: No Has the patient ever had Guillain-Auburn Syndrome?: No Has the patient ever had any past reaction to a flu shot?: No Immunizations Fluarix [id number] (PF) 45 mcg (15 mcg x 3)/0.5 mL IM syringe Performing Provider: Amber Lomax MD [place] [facility] Administered by: MILA Martins on 08/23/25 10:53 Dose Route Admin Location Dispensed Lot Number Expiration Date NDC [place] [employer] 0.5 mL IM Left Deltoid 0.5 mL [id number] 05/07/26 51287-934-05 [employer] VIS Given Date VIS Provided VIS Publication Date 08/23/25 Single Vaccine 24 Eligibility Eligibility Date Funding Source Not [facility] Eligible 08/23/25 Private Coding Level of Care Code Est Pt Prev Care 18-39y(21809) Diagnoses Physical exam Z00.00 Additional Codes DANDY-7 Assessment Billing - DANDY-7 Assessment Tool: DANDY-7 Assessment 06732 ([id number]) PHQ-9 - 75151 - PHQ-9 Billing: Yes ([id number]) Time Spent (min) 30 Assessment & Plan Assessment & Plan (1) Physical exam: Code(s): Z00.00 - Encounter for general adult medical examination without abnormal findings Category: Medical Plan Plan 1. Encounter for general adult medical examination without abnormal findings Z00.00 Repeat in a year. 2. Depression, unspecified F32.A The patient is experiencing mild depression with a PHQ-9 score of 3, showing slight improvement. She is advised to continue stress management strategies, including taking breaks and relaxation techniques. Orders: Orders Comprehensive [place]. Panel Fast Today Z00.00 - Encounter for general adult medical examination without abnormal findings Lipid Panel Today Z00.00 - Encounter for general adult medical examination without abnormal findings Influenza 4514-1475 Immunization Today Z23 - Encounter for immunization Medications: New metformin 500 mg PO DAILY 90 tabs 1RF 90 days
[2025-08-23 10:22] VITALS: BP 128/72; PULSE 70; TEMP 36.2; O2SAT 98; BMI 31.3
--- OUTSIDE RECORDS SUMMARY | 2025-08-23 12:13 | XMS_ITS | Clinical Summary ---
Author Organization [employer] Address [address] [facility] [address] [place] [address] Care Team Providers Care Clipper Machine Operator Name Role Phone Unavailable Primary Care Provider Unavailabl e Immunizations Immunization Administration Dates Next Due DTP 05/25/1997, 4,01/23/1994,06/18 HPV, Quadrivalent 04/06/2008,12/06/2007,08/30/20 07 Hep B, Adolescent or Pediatric 06/17/1998,1996,05/25/1997 Hib (PRP-T) 08/12/1994,01/23/1994,1993 IPV 05/25/1997, 4,01/23/1994,06/18 Influenza Injectable Quadriv alant Preservative Free IIV4 MDCK 07/20/2023,08/10/2018 Influenza, IIV3, injectable 07/15/2017,1 12/11/2007,12/06/2007,09/17 Influenza, Split (incl. nica fied surface antigen) 09/24/2010 MMR 05/25/1997,08/12/1994 Meningococcal MCV4P ACYW-135 08/30/2007 Novel [id number]-C2L2-85, all formulations 09/18/2009 Pfizer Covid-19 Vaccine 12+ [...] 1993 HIV Screening 1993 SDOH Screening 1993 Disability Screening 1993 Alcohol/Substance Use Screening 2005 Tobacco Screening 2005 Family Planning (PISQ) 2008 Hepatitis C Screening 2011 Pap Smear 2014 Cervical Cancer Screening 2023 HPV/Cotest 2023 COVID-19 Vaccine ( season) 2025 11/09/2023, 03/20/2021, 02/20/2021 Influenza Vaccine (#1) 2025 , 08/10/2018, 07/15/2017, Additional history exists DTaP/Tdap/Td [...] Years) and At-Risk Patients (6 to 49) Years Aged Out No longer eligible based on patient's age to complete this topic RSV under 20 months Aged Out No longe r eligible based on patient's age to complete this topic Rotavirus Vaccines Aged Out No longer eligible based on patient's age to complete this topic Insurance [facility] (O) N PARTIAL
--- OUTSIDE RECORDS SUMMARY | 2025-08-23 12:13 | XMS_ITS | Clinical Summary ---
Author Organization [facility] Address [address] [place] [address] Phone Care Team Providers Care Dusting And Brushing Machine Operator Name Role Phone Amber Lomax MD Primary Care Provider [phone] Allergies Active Allergy Reactions Criticality Noted Date [...] DAY 45 tablet 1 11/23/19 25 Active M-Kandis Plus 27 mg iron- 1 mg tabletIndicati ons:Other specified health status TAKE 1 TABLET BY MOUTH EVERY DAY 90 tablet 3 07/22/20 25 Active Active Problems Problem Noted Date Diagnosed Date Elevated platelet count 07/30/2023 Overview (09/26/2024): 07/09/23 platelets 450 07/27/23 platelets 450 12/07/22-platlets 345-resolved Hemorrhoids during 07/28/2023 Overview (09/26/2024): albert Aguilera and Preparation H encouraged Reviewed comfort measures [...] 14yrs marriage. Looking for therapist. 07/20/2023 at - EPDS 24, declines SI/HI. Offered referral for [...] BMI of 50 by 28wks transfer [place] [facility] [place] DVT prophylaxis- Lovenox if CS and BMI [...] will need MFM consult. 07/26/2023 labs ordered Immunizations Immunization Administration Dates Next Due Influenza Quadravalent, MDCK , 0.5ml, preservative free (Flucelvax) 6mo and older 07/20/2023,08/10/2018 Tdap Tetanus diptheria acell ular pertussis (Boostrix; Adacel) 7yo and older 10/25/2023,09/08/2018,04/15/2017 Surgical History Surgery Date Site/Laterality Comments CHOLECYSTECTOMY 2012 PROCEDURE: HISTORICAL CHOLECYSTECTOMY CHOLECYSTECTOMY PROCEDURE: [place] LAPAROSCOPY SURG CHOLECYSTECTOMY SECTION PROCEDURE: [place] DELIVERY ONLY; COMMENT: 2018 WISDOM TOOTH EXTRACTION [...] Sexual Orientation Not on file Obstetrics History * This document contains information received from the source organization and may not represent a complete record from that organization. Para Term AB IAB SAB Ectopic Multiple Livin g Live Births 9 3 3 3 3 Date Outcome GA Total Labor Labor/2nd/3rd Weight Sex Type Anes PTL Maureen A1 A5 Name Clin 2016 Term 40w 2d 3317 g (117 oz) F CS-Un spec Epidur al N Livin g 8 9 Dailan gladis Rothman Complications:Failure to Pro agapito in Second Stage Delivery [facility] 2018 Term 40w 6d 3856 g (136 oz) M CS-Un spec Spinal Livin g [address] Lynette zazueta Delivery Location:[facility] 2023 Term 39w 0d 3459 g (122 oz) F CS-LT ranv Spinal N Livin g Rick Del Real MD Complications:None Delivery Location:[facility] Last Filed Vital Signs Vital [...] 11/06/2024 2:27 PM EST Plan of Treatment Upcoming Encounters Date Type Department Care Team (Late st Contact Info) Description 08/27/2025 11:00 AM EDT Office Visit Obstetrics and Gynecology [address] [phone] Nisha Clahoun, [facility] [address], [place] Health Maintenance Due Date Last Done Comments Cholesterol Screening (Lipid Panel) 10/10/2022 HIV Screening 10/10/2022 Social Influencers of Health Screening 10/10/2022 Depression Screening 11/08/2024 01/24/2024 COVID-19 Vaccine ( season) 2025 11/09/2023, 03/20/2021, 02/20/2021 Influenza Vaccine (#1) 2025 , 07/20/2023, 08/10/2018, Additional history exists Cervical Cancer Screening: HPV 11/06/2029 11/06/2024, 03/26/2021 DTaP,Tdap,and Td Vaccines (9 - Td or Tdap) 10/25/2033 10/25/2023, 09/08/2018, 04/15/2017, Additional history exists RSV Immunization Adult Patients (1 - 1-dose 75+ series) 2068 HIB [...] 09/18/2009, 12/16/2004 Hepatitis C Screening Completed 07/09/2023 Hepatitis A Vaccines Aged Out No long er eligible based on patient's age to complete this topic Meningococcal B Vaccine Aged Out No l onger eligible based on patient's age to complete this topic Pneumococcal Vaccine: Pediatrics (0 to 5 Years) and At-Risk Patients (6 to 49 Years) Aged Out No longer eligible based on patient's age to complete this topic RSV Immunization Patients Under 20 months Aged Out No longer eligible based on patient's age to complete this topic Procedures Procedure Name Priority Date/Time Associated Diagnosis Comments HPV WITH REFLEX GENOTYPE Routine 11/06/2024 3:53 PM EST Encounter for gynecological examination without abnormal finding DEPRESSION SCREENING Routine 01/24/2024 HEPATITIS C SCREENING Routine 07/09/2023 from Last 3 Months or Most Recently Relevant to Health Maintenance Results * HPV with reflex genotype (11/06/2024 3:53 PM EST) HPV Negative Negative LAB MICROBIOLOGY METHOD 11/10/2024 2:02 PM EST [facility] Brushing/Spatula Cervix uteri structure / Unknown 11/06/2024 3:53 PM EST 11/09/2024 7:41 AM EST Jayde Rosenberg KJ LAB MOLECULAR DIAGNOSTICS ORDER JILL Final Result [facility] [address] [place] [address], * Depression Screening (01/24/2024) Depression Screening abstracted Historical Provider HEALTH MAINTENANCE Final Result * Hepatitis C Screening (07/09/2023) Hepatitis C Screening abstracted Historical Provider HEALTH MAINTENANCE Final Result from Last 3 Months or Most Recently Relevant to Health Maintenance Insurance [facility] [employer] Care Teams Dusting And Brushing Machine Operator Relationship Specialty Start Date End Date Amber Lomax MD [address] [place] [address] , [address] Physician Associ D/B/A: [facility] [place] PCP - General Internal Medicine 09/06/18
== END 2025-08-23 10:59 | disposition home or self-care (01) ==
LOC: HO.HMCH 10:09
PROVIDERS: PCP Internal Medicine; Visit Provider Internal Medicine
DX: Z23 Encounter for immunization (principal); Z00.00 Encounter for general adult medical examination without abnormal findings

== ENCOUNTER → 2025-08-23 10:08 | Outpatient (BNVA) | payer OTHER, SELFPAY | PROVIDERS: PCP Internal Medicine; Visit Provider Internal Medicine | DX: Z00.00 Encounter for general adult medical examination without abnormal findings (principal); F32.A Depression, unspecified; Z23 Encounter for immunization | CPT/HCPCS: 90471; 90656; 96127; 99395 ==

== ENCOUNTER 2025-08-28 10:15 | Outpatient (REF) | payer OTHER, SELFPAY ==
[2025-08-28 11:37] LABS: Alanine Aminotransferase 18 U/L (0-31); Albumin Level 4.6 g/dL (3.5-5.0); Alkaline Phosphatase 86 U/L (39-117); Anion Gap 9 (12-20); Aspartate Amino Transferase 18 U/L (5-31); Blood Urea Nitrogen 9 mg/dL (9-16); Calcium 9.2 mg/dL (8.4-10.2); Carbon Dioxide 26 mmol/L (22-29); Chloride 109 mmol/L (96-108); Cholesterol 200 mg/dL (<200); Estimated Glomerular Filt Rate > 60; HDL Cholesterol 49 mg/dL (>40); Potassium 4.0 mmol/L (3.3-5.1); Sodium 140 mmol/L (135-145); Total Protein 7.7 g/dL (6.5-8.0); Triglycerides 58 mg/dL (<150)
--- OUTSIDE RECORDS SUMMARY | 2025-08-28 12:08 | XMS_ITS | Clinical Summary ---
Author Organization [employer] Address [address] [facility] [address] [place] [address] Care Team Providers Care Job Press Feeder Name Role Phone Unavailable Primary Care Provider Unavailabl e Immunizations Immunization Administration Dates Next Due DTP 05/25/1997, 4,01/23/1994,06/18 HPV, Quadrivalent 04/06/2008,12/06/2007,08/30/20 07 Hep B, Adolescent or Pediatric 06/17/1998,1996,05/25/1997 Hib (PRP-T) 08/12/1994,01/23/1994,1993 IPV 05/25/1997, 4,01/23/1994,06/18 Influenza Injectable Quadriv alant Preservative Free IIV4 MDCK 07/20/2023,08/10/2018 Influenza, IIV3, injectable 07/15/2017,1 12/11/2007,12/06/2007,09/17 Influenza, Split (incl. nica fied surface antigen) 09/24/2010 MMR 05/25/1997,08/12/1994 Meningococcal MCV4P ACYW-135 08/30/2007 Novel [id number], all formulations 09/18/2009 Pfizer Covid-19 Vaccine 12+ [...] patient's age to complete this topic Insurance [facility] (O) N PARTIAL
== END 2025-08-28 10:16 | disposition home or self-care (01) ==
LOC: HO.LAB 10:15
PROVIDERS: PCP Internal Medicine; Visit Provider Internal Medicine
DX: Z00.00 Encounter for general adult medical examination without abnormal findings (principal)
CPT/HCPCS: 36415; 80053; 80061

== ENCOUNTER 2025-09-03 12:32 | Outpatient (REF) | payer OTHER, SELFPAY ==
[2025-09-03 12:44] LABS: MANUAL DIFF FLAG NO
[2025-09-03 13:59] LABS: Hematocrit 35.8 % (37.0-47.0); Hemoglobin 11.6 g/dl (12.0-16.0); Imm Gran Abs Auto 0.02 X10*3/uL (0.00-0.03); Imm Gran Pct Auto 0.2 % (0.0-0.4); Lymphocytes Absolute Auto 2.6 X10*3/uL (1.2-4.9); Mean Corpuscular HGB Conc 32.4 g/dl (31.0-35.0); Mean Corpuscular Hemoglobin 27.8 pg (27.0-33.0); Mean Corpuscular Volume 85.6 fL (80.0-98.0); NRBC Abs Auto 0.000 X10*3/uL (0.0-0.012); NRBC Pct Auto 0.0 /100WBC (0.0-0.2); Platelet Count 396 X10*3/uL (160-400); Red Blood Count 4.18 X10*6/uL (4.20-5.50); White Blood Count 9.7 X10*3/uL (4.8-10.8)
--- OUTSIDE RECORDS SUMMARY | 2025-09-03 15:53 | XMS_ITS | Clinical Summary ---
Author Organization [facility] Address [address] [place] [address] Phone Care Team Providers Care Customer Service Teller Name Role Phone Amber Lomax MD Primary Care Provider [phone] Allergies Active Allergy Reactions Criticality Noted Date [...] 90 capsule 3 11/06/20 24 025 Active Additional Information Patient not taking.Reported on 08/27/2025 docusate sodium (COLACE) 100 mg capsule Take 1 capsule (100 mg total) by mouth 2 (two) times a day. 180 each 3 11/06/20 24 025 Active Additional Information Patient not taking.Reported on 08/27/2025 ferrous sulfate 325 mg (65 mg elemental iron) tablet TAKE 1 TABLET BY MOUTH EVERY OTHER DAY 45 tablet 1 11/23/19 25 Active Additional Information Patient not taking.Reported on 08/27/2025 M- Plus 27 mg iron- 1 mg tabletIndicati ons:Other specified health status TAKE 1 TABLET BY MOUTH EVERY DAY 90 tablet 3 07/22/20 Active metFORMIN (GLUCOPHAGE) 500 mg tablet Take 1 tablet (500 mg total) by mouth 1 (one) time each day. 08/23/20 Active ibuprofen (ADVIL,MOTRIN) 600 mg tabletIndicati ons:Dysmenorrh ea Take 1 tablet (600 mg total) by mouth every 6 (six) hours if needed for moderate pain (and heavy periods). 90 tablet 08/27/20 25 Active Active Problems Problem Noted Date [...] SI/HI, continues to declines meds or referral Primary oligomenorrhea 05/19/2023 Overview (09/26/2024): Last Assessment [...] will need MFM consult. 07/26/2023 labs ordered Resolved Problems Problem Noted Date Diagnosed Date Resolved Date Obesity in 07/06/2023 025 Overview (09/26/2024): HgbA1C and 1 hour GTT [...] BMI of 50 by 28wks [place] [facility] [place]VT prophylaxis- Lovenox if CS and BMI >35 Urinary tract infection in m other during first trimester of 05/28/2023 08/27/2025 Overview (09/26/2024): Ecoli.- Treated SAGAR in 4 weeks- mix growth Encounters Date Type Department Care Team Description 08/27/2025 11:00 AM EDT Office Visit Obstetrics and Gynecology - [address] [phone] Nisha Calhoun CNM PCB (post coital bleeding) (Primary Dx); Irregular periods; Intrauterine device surveillance; Screen for STD (sexually transmitted disease); Dysmenorrhea; Menorrhagia with irregular cycle; control counseling 08/27/2025 Results Follow-Up Obstetrics and Gynecology - [address] [phone] Nisha Calhoun CNM 08/27/2025 Telephone Obstetrics and Gynecology - [address] [phone] Nisha Calhoun CNM from Last 3 Months Immunizations Immunization Administration Dates Next Due Influenza Quadravalent, MDCK , 0.5ml, preservative free (Flucelvax) 6mo and older 07/20/2023,08/10/2018 Tdap Tetanus diptheria acell ular pertussis (Boostrix; Adacel) 7yo and older 10/25/2023,09/08/2018,04/15/2017 Surgical History Surgery Date Site/Laterality Comments CHOLECYSTECTOMY 2012 PROCEDURE: HISTORICAL CHOLECYSTECTOMY CHOLECYSTECTOMY PROCEDURE: [facility] LAPAROSCOPY SURG CHOLECYSTECTOMY SECTION PROCEDURE: [facility] DELIVERY ONLY; COMMENT: 2018 WISDOM TOOTH EXTRACTION [...] = 0.6 oz pur e alcohol) Comments No Sex and Gender Information Value Date Recorded [...] Epidur al N Livin g 8 9 Franklin Rothman Complications:Failure to Pro agapito in Second Stage Delivery Location:[facility] 2018 Term 40w 6d 3856 g (136 oz) M CS-Un spec Spinal Livin g [address] Lynette zazueta Delivery Location:[facility] 2023 Term 39w 0d 3459 g (122 oz) F CS-LT ranv Spinal N Livin g Rick do de la Guard ia, MD Complications:None Delivery Location:[facility] Last Filed Vital Signs Vital Sign Reading Time Taken Comments Blood Pressure 126/78 08/27/2025 11:00 AM EDT Pulse 78 08/27/2025 11:00 AM EDT Temperature - - Respiratory Rate - - Oxygen Saturation - - Inhaled Oxygen Concentration - - Weight 68.5 kg (151 lb) 08/27/2025 11:00 AM EDT Height 147.3 cm (4' 10 ) 11/06/2024 2:27 PM EST Body Mass Index 31.56 11/06/2024 2:27 PM EST Plan of Treatment Health Maintenance Due Date Last Done Comments HIV Screening 10/10/2022 Social Influencers of Health Screening 10/10/2022 Depression Screening 11/08/2024 01/24/2024 COVID-19 Vaccine ( season) 2025 11/09/2023, 03/20/2021, 02/20/2021 Cervical Cancer Screening: HPV 11/06/2029 11/06/2024, 03/26/2021 [...] C Screening Completed 07/09/2023 Influenza Vaccine Completed 08/23/2025, , 07/20/2023, Additional history exists Hepatitis A Vaccines Aged [...] Procedure Name Priority Date/Time Associated Diagnosis Comments TRICHOMONAS VAGINALIS ANTIGEN Routine 08/27/2025 1:15 PM EDT PCB (post coital bleeding) WET PREP, GENITAL Routine 08/27/2025 1:1 5 PM EDT PCB (post coital bleeding) CHLAMYDIA TRACHOMATIS AND NEISSERIA GONORRHOEAE PCR Routine 08/27/2025 1:15 PM EDT Screen for STD (sexually transmitted disease) CBC WITH AUTO DIFFERENTIAL Routine 08/27/2025 11:41 AM EDT Irregular periods CBC AND DIFFERENTIAL Routine 08/27/2025 11:41 AM EDT Irregular periods THYROID STIMULATING IMMUNOGLOBULIN Routine 08/27/2025 11:41 AM EDT Irregular periods HCG, SERUM, QUALITATIVE Routine 08/27/2025 11:41 AM EDT Irregular periods HPV WITH REFLEX GENOTYPE Routine 11/06/2024 3:53 PM EST Encounter for gynecological examination without abnormal finding HM DEPRESSION SCREENING Routine 01/24/2024 HM HEPATITIS C SCREENING Routine 07/09/2023 from Last 3 Months or Most Recently Relevant to Health Maintenance Results * Trichomonas vaginalis antigen (08/27/2025 1:15 PM EDT) Trichomonas vaginalis Negative Negative 08/27/2025 7:43 PM EDT [facility] Swab Vaginal structure / Unknown Non-blood Collection / Unknown 08/27/2025 1:15 PM EDT 08/27/2025 1:15 PM EDT us Nisha HOROWITZ LAB MICROBIOLOGY - GENERAL ORD ERABLES Final Result [facility] [address] [place] [address], [place] [phone] * Chlamydia trachomatis and Neisseria gonorrhoeae molecular study (08/27/2025 1:15 PM EDT) Neisseria gonorrhoeae PCR Negative Negative LAB MOLECULAR DIAGNOSTICS METHOD 08/28/2025 10:07 AM EDT [facility] Chlamydia trachomatis PCR Negative Negative LAB MOLECULAR DIAGNOSTICS METHOD 08/28/2025 10:07 AM EDT [facility] Swab Cervix uteri structure / Unknown Non-blood Collection / Unknown 08/27/2025 1:15 PM EDT 08/27/2025 1:15 PM EDT us Nisha HOROWITZ LAB MICROBIOLOGY - GENERAL ORD ERABLES Final Result [facility] [address] [place] [address], [place] [phone] * Wet prep, genital (08/27/2025 1:15 PM EDT) Clue Cells, Wet Prep Negative Negative 08/27/2025 7:43 PM EDT [facility] Yeast, Wet Prep Negative Negative 08/27/2025 7:43 PM EDT [facility] Trichomonas, Wet Prep Indeterminate Negative 08/27/2025 7:43 PM EDT [facility] Comment:Refer to Trichomonas antigen. Swab Vaginal structure / Unknown Non-blood Collection / Unknown 08/27/2025 1:15 PM EDT 08/27/2025 1:15 PM EDT Nisha Calhoun CNM LAB MICROBIOLOGY - GENERAL ORD ERABLES Final Result [facility] [address] [place] [address], * (ABNORMAL) CBC auto differential (08/27/2025 11:41 AM EDT) WBC 11.0(H) 4.8 - 10.8 K/mcL LAB HEMETOLOGY METHOD 08/27/2025 2:23 PM EDT [facility] RBC 4.60 3.80 - 4.80 M/mcL LAB HEMETOLOGY METHOD 08/27/2025 2:23 PM EDT [facility] Hemoglobin 12.7 11.5 - 16.0 g/dL LAB HEMETOLOGY METHOD 08/27/2025 2:23 PM EDT [facility] Hematocrit 39.2 35.0 - 47.0 % LAB HEMETOLOGY METHOD 08/27/2025 2:23 PM EDT [facility] MCV 85.6 79.0 - 98.0 FL LAB HEMETOLOGY METHOD 08/27/2025 2:23 PM EDT [facility] MCH 27.7 27.0 - 32.0 pcg LAB HEMETOLOGY METHOD 08/27/2025 2:23 PM EDT [facility] MCHC 32.4 32.0 - 37.0 g/dL LAB HEMETOLOGY METHOD 08/27/2025 2:23 PM EDT [facility] RDW 13.2 11.0 - 15.0 % LAB HEMETOLOGY METHOD 08/27/2025 2:23 PM EDT [facility] Platelets 419(H) 130 - 400 K/mcL LAB HEMETOLOGY METHOD 08/27/2025 2:23 PM EDT [facility] MPV 9.2 7.0 - 11.0 FL LAB HEMETOLOGY METHOD 08/27/2025 2:23 PM EDT [facility] NRBC 0.0 <1.0 % LAB HEMETOLOGY METHOD 08/27/2025 2:23 PM [facility] NRBC Absolute 0.00 <0.10 K/mcL LAB HEMETOLOGY METHOD 08/27/2025 2:23 PM [facility] Neutrophils Relative 59.5 % LAB HEMETOLOGY METHOD 08/27/2025 2:23 PM [facility] Lymphocytes Relative 32.1 % LAB HEMETOLOGY METHOD 08/27/2025 2:23 PM [facility] Monocytes Relative 6.2 % LAB HEMETOLOGY METHOD 08/27/2025 2:23 PM [facility] Eosinophils Relative 1.6 % LAB HEMETOLOGY METHOD 08/27/2025 2:23 PM [facility] Basophils Relative 0.4 % LAB HEMETOLOGY METHOD 08/27/2025 2:23 PM [facility] Immature Granulocytes Relative 0.2 % LAB HEMETOLOGY METHOD 08/27/2025 2:23 PM [facility] Neutrophils Absolute 6.53 1.50 - 7.00 K/mcL LAB HEMETOLOGY METHOD 08/27/2025 2:23 PM T [facility] Lymphocytes Absolute 3.53 1.00 - 5.00 K/mcL LAB HEMETOLOGY METHOD 08/27/2025 2:23 PM T [facility] Monocytes Absolute 0.68 0.20 - 1.00 K/mcL LAB HEMETOLOGY METHOD 08/27/2025 2:23 PM [facility] Eosinophils Absolute 0.18 0.00 - 0.50 K/mcL LAB HEMETOLOGY METHOD 08/27/2025 2:23 PM T [facility] Basophils Absolute 0.04 0.00 - 0.20 K/mcL LAB HEMETOLOGY METHOD 08/27/2025 2:23 PM EDT [facility] Immature Granulocytes Absolute 0.02 0.00 - 0.03 K/[facility] LAB HEMETOLOGY METHOD 08/27/2025 2:23 PM EDT [facility] Blood Venous blood specimen / Unknown Venipuncture / Unknown 08/27/2025 11:41 AM EDT 08/27/2025 11:41 AM EDT Nisha Calhoun [facility] BLOOD ORDERABLES Final Res ult [facility] [address] [place] [address], [place] [phone] * Thyroid stimulating immunoglobulin (08/27/2025 11:41 AM EDT) Thyroid Stimulating Immunoglobulin <0.10 <0.10 IU/L 08/30/2025 3:19 PM EDT [facility] Comment: Thyroid stimulating immunoglobulins (TSI) concentrations greater than or equal to (>=) 0.55 IU/L have a clinical sensitivity of at least 98.6%, and a clinical specificity of at least 98.5%, for the differential diagnosis of Graves' Disease. TSI concentrations for patients with other thyroid or autoimmune diseases range from 0.11 to 0.39 IU/L. Test performed at [facility], [address], [place], [place] [id number] Kaylee Doe MD, PhD - Supervisor [employer] Blood Venous blood specimen / Unknown Venipuncture / Unknown 08/27/2025 11:41 AM EDT 08/27/2025 11:41 AM EDT us Nisha Lopez Lj [facility] BLOOD ORDERABLES Final Res ult [facility] [address] [place] [address] * HCG, serum, qualitative (08/27/2025 11:41 AM EDT) [facility] hCG Qual Negative Negative 08/27/2025 2:14 PM EDT [facility] Blood Venous blood specimen / Unknown Venipuncture / Unknown 08/27/2025 11:41 AM EDT 08/27/2025 11:41 AM EDT Nisha Calhoun [facility] BLOOD ORDERABLES Final Res ult [facility] [address] [place] [address], [place] [phone] * HPV with reflex genotype (11/06/2024 3:53 PM EST) [facility] HPV Negative Negative LAB MICROBIOLOGY METHOD 11/10/2024 2:02 PM EST [facility] Brushing/Spatula Cervix uteri structure / Unknown 11/06/2024 3:53 PM EST 11/09/2024 7:41 AM EST Jayde Rosenberg [facility] MOLECULAR DIAGNOSTICS ORDER JILL Final Result Performing Organization Address [facility]/ZIP Co de Phone Number [facility] [address] [place] [address], [place] [phone] * Depression Screening (01/24/2024) [facility] Depression Screening abstracted Historical Provider HEALTH MAINTENANCE Final Result * Hepatitis C Screening (07/09/2023) [facility] Hepatitis C Screening abstracted Historical Provider HEALTH MAINTENANCE Final Result from Last 3 Months or Most Recently Relevant to Health Maintenance Insurance [facility] [employer] Care Teams Customer Service Teller Relationship Specialty Start Date End Date Amber Lomax MD [address] [place] [address] , [address] Physician Associ D/B/A: [facility] [place], [place] PCP - General Internal Medicine 09/06/18
--- OUTSIDE RECORDS SUMMARY | 2025-09-03 15:53 | XMS_ITS | Encounter Summary ---
Author Organization [facility] Address [address] [place] [address] Care Team Providers Care Explosive Operator Fuse Name Role Phone Amber Lomax MD Primary Care Provider [phone] Reason for Referral * Consultation (Routine) - Pending Review Specialty Diagnoses / Procedures Referred By Contact Referred To Contact Hematology and Oncology Diagnoses Menorrhagia with irregular cycle Elevated platelet count Nisha Calhoun CNM [address] [place], [place] Phone: tel: fax: [facility] Hematology Oncology [address] [place] [address] Phone: tel: fax: Referral ID Status Reason Start Date Expiration Date Visits Requested Visits Authorized [id number] Pending Review Consult and Treat 09/01/2026 1 1 Encounter Details Date Type Department Care Team (Late st Contact Info) Description 08/27/2025 Results Follow-Up Obstetrics and Gynecology - [address] [phone] Nisha Calhoun CNM [address] [place], [place] Social History Tobacco Use Types Packs/Day Years Used Date Smoking Tobacco: Never Smokeless Tobacco: Never Alcohol Use Standard Drinks/Week Comments No 0 (1 standard drink = 0.6 oz pur e alcohol) Comments No Sex and Gender Information Value Date Recorded Sex Assigned at Not on file Legal Sex Female 10:06 PM EST Gender Identity Not on file Sexual Orientation Not on file documented as of this encounter Plan of Treatment Scheduled Orders Name Type Priority Associated Diagnoses Orde r Schedule Thyroid stimulating hormone with reflex to free t4 and free t3 Lab Routine Menorrhagia with irregular cycle 1 Occurrences starting 09/01/2025 until 09/01/2026 Scheduled Referrals Name Type Priority Associated Diagnoses Order Schedule Ambulatory referral to Hematology / Oncology Outpatient Referral Routine Menorrhagia with irregular cycle Elevated platelet count 1 Occurrences starting 09/01/2025 until 09/01/2026 documented as of this encounter Visit Diagnoses Diagnosis Elevated platelet count- Primary Essential thrombocythemia Menorrhagia with irregular cycle documented in this encounter Care Teams Explosive Operator Fuse Relationship Specialty Start Date End Date Amber Lomax MD [address] [place] [address] , [address] Physician Associ D/B/A: [facility] [place] PCP - General Internal Medicine 09/06/18 documented as of this encounter
--- OUTSIDE RECORDS SUMMARY | 2025-09-03 15:53 | XMS_ITS | Clinical Summary ---
Author Organization [employer] Address [address] [place] [address] Care Team Providers Care Environmental Services Coordinator Name Role Phone Unavailable Primary Care Provider Unavailabl e Immunizations Immunization Administration Dates Next Due DTP 05/25/1997, 4,01/23/1994,06/18 HPV, Quadrivalent 04/06/2008,12/06/2007,08/30/20 07 Hep B, Adolescent or Pediatric 06/17/1998,1996,05/25/1997 Hib (PRP-T) 08/12/1994,01/23/1994,1993 IPV 05/25/1997, 4,01/23/1994,06/18 Influenza Injectable Quadriv alant Preservative Free IIV4 MDCK 07/20/2023,08/10/2018 Influenza, IIV3, injectable 07/15/2017,1 12/11/2007,12/06/2007,09/17 Influenza, Split (incl. nica fied surface antigen) 09/24/2010 MMR 05/25/1997,08/12/1994 Meningococcal MCV4P ACYW-135 08/30/2007 Novel [id number], all formulations 09/18/2009 Pfizer Covid-19 Vaccine 12+ [...] age to complete this topic Insurance [facility] ([place] [place] [address] N PARTIAL
--- OUTSIDE RECORDS SUMMARY | 2025-09-03 15:54 | XMS_ITS | Encounter Summary ---
Author Organization [facility] Address [address] [place] [address] Care Team Providers Care User Interface Designer Name Role Phone Amber Lomax MD Primary Care Provider [phone] Reason for Visit * Reason Onset Date Comments Return Call From Center/Facility 08/27/2025 Encounter Details Date Type Department Care Team ([facility] st Contact Info) Description 08/27/2025 Telephone Obstetrics and Gynecology - [place] [address] [place], [place] [phone] Nisha Calhoun, [facility] [address] [place], [place] Social History Tobacco Use Types Packs/Day [...] on file documented as of this encounter Progress Notes * Olivia Moore RN - 08/27/2025 1:24 PM EDT Provider did add additional labs for pt-called pt to ask about any additional facial hair and breakouts Patient does report noticing chin hairs, but not breaking out more than usual. Will relay this infoto provider. * Irina Nash - 08/27/2025 12:50 PM EDT Pt states she is returning a call. Was seen today. Do not see any notes. documented in this encounter Plan of Treatment Not on file documented as of this encounter Visit Diagnoses Not on filedocumented in this encounter Care Teams User Interface Designer Relationship Specialty Start Date End Date Amber Lomax MD [address] [place] [address] , [address] [facility] Physician Associ D/B/A: [facility] PCP - General Internal Medicine 09/06/18 documented as of this encounter
== END 2025-09-03 12:33 | disposition home or self-care (01) ==
LOC: HO.LAB 12:32
PROVIDERS: PCP Internal Medicine; Visit Provider Internal Medicine
DX: D64.9 Anemia, unspecified (principal)
CPT/HCPCS: 36415; 85025

== ENCOUNTER 2025-09-14 08:56 | Outpatient (REF) | payer OTHER, SELFPAY ==
[2025-09-14 14:27] LABS: Resp Syncy Virus RNA Qual PCR NEGATIVE (Negative); SARS COV2 PCR INHOUSE NEGATIVE (Negative)
== END 2025-09-14 08:57 | disposition home or self-care (01) ==
LOC: HO.LAB 08:56
PROVIDERS: PCP Internal Medicine; Visit Provider Nurse Practitioner Family
DX: J02.9 Acute pharyngitis, unspecified (principal)
CPT/HCPCS: 87637; 87880; 99212

== ENCOUNTER 2025-09-14 08:56 | Outpatient (AMB) | payer OTHER, SELFPAY ==
[2025-09-14 09:47] VITALS: BP 108/74; PULSE 99; RESP 16; O2SAT 99; BMI 31.6
--- NOTE | 2025-09-14 09:47 | AM.OFFWIN_ITS ---
Intake Vital Signs 09/14/25 09:47 Height 4 ft 10 in Weight 151 lb BMI 31.6 BP 108/74 Blood Pressure Location Lt brachial Position Sitting Respiration 16 Pulse 99 Pulse Source Pulse Oximeter Pulse Oximetry (%) 99 Oxygen Delivery Method Room Air Oxygen Flow Rate 98.1 Intake Visit Reasons: ep sore throat Intake Note: Pt coming in with sore throat , headaches and diarrhea x2 days Patient Tobacco Use Status: Never used Tobacco Flexible Machining System Machinist Required: No Accompanied by: Self / Same As Patient Allergies No Known Allergies Allergy (Verified 09/14/25 10:01) Do you need a note to return to daycare/school/sports/work: No HPI ep sore throat HPI Details This is a 30-year-old female patient who presents to the walk-in clinic today with report of sore throat, headache, diarrhea for the last 2 days. Denies cough or shortness of breath. Reports her children had similar illnesses which lasted less than 1 day each. She has been taking Motrin for her sore throat, which has been severe and limiting her oral intake. Denies any fevers, however has been feeling warm on an off. [facility] Medical History Chronic allergic rhinitis Constipation by delayed colonic transit Loss of consciousness Class 2 obesity with body mass index (BMI) of 36.0 to 36.9 in adult Asthma Surgical History History of laparoscopic cholecystectomy History of Family History Father Diabetes Mother Epilepsy Social History Housing: Apartment Alcohol intake: never Patient Tobacco Use Status: Never used Tobacco e-Cigarette/Vaping Use: Never Used Second Hand Smoke Exposure: No service: No Current occupational status: unemployed Cognitive needs: No Hearing needs: No Vision needs: No Review of Systems Const All systems reviewed & are unremarkable except as noted in HPI and below Physical Exam Const General: cooperative and no acute distress Limitations: no limitations HEENT Head: Yes normal to inspection Ears: hearing grossly normal bilaterally General nose exam: Normal external nose present Face and sinus: Yes normal facial exam Mouth: Normal oral and palatal mucosa present Throat: Yes posterior oropharynx abnormal (Erythema, tonsillar hypertrophy. No exudate) Neck Neck: Yes no lymphadenopathy Resp Effort & Inspection: normal respiratory effort Auscultation: clear to auscultation bilaterally Cardio Rate: regular rate Rhythm: regular rhythm GI Palpation (GI): Soft to palpation (Nontender) Skin General skin exam: no rashes or lesions noted Extrem General: Yes capillary refill normal and Yes no clubbing, cyanosis or edema Psych Appearance: grossly normal Mental Status: mental status grossly normal Speech and movement: Normal speech and movement present Results AMB Rapid Strep AMB Rapid Strep Negative Last Edit by Elda Mccallum MA on 09/14/25 10:23 Assessment & Plan Assessment & Plan (1) Pharyngitis: Code(s): J02.9 - Acute pharyngitis, unspecified Qualifiers: Pharyngitis/tonsillitis etiology: unspecified etiology Qualified Code(s ): J02.9 - Acute pharyngitis, unspecified Plan: Symptoms consistent with viral illness. COVID/flu/RSV swab was obtained, and patient aware she will be notified of results once these are available. I am going to prescribe her a short course of prednisone for her pharyngitis, which has been quite painful for her. Rapid strep was negative. She has taken prednisone in the past for her asthma without issues. We reviewed indications, use, possible side effects of this. Advised increased hydration and Tylenol p.r.n. may also utilize kbyw-zgh-ajbyhit lozenges. If she does not improve with these measures, or if symptoms worsen/new symptoms develop, she can return to the clinic for further evaluation. She verbalizes understanding and agrees to plan. Orders: Orders AMB Rapid Strep Screen Today Z13.9 - Encounter for screening, unspecified SARS-CoV2/FLU/RSV Today R09.89 - Other specified symptoms and signs involving the circulatory and respiratory systems Medications: New prednisone 40 mg (2 x 20 mg) PO DAILY 6 tabs 0RF 3 days J02.9 - Acute pharyngitis, unspecified Coding Level of Care Code Est Pt Level 4 (64104) Diagnoses Pharyngitis, unspecified etiology J02.9 Pharyngitis/tonsillitis etiology: unspecified etiology
--- OUTSIDE RECORDS SUMMARY | 2025-09-14 09:48 | XMS_ITS | Clinical Summary ---
Author Organization [facility] Address [address] [place] [address] Phone Care Team Providers Care Painter Sign Maintenance Name Role Phone Amber Lomax MD Primary Care Provider [phone] Allergies Active Allergy Reactions Criticality Noted Date [...] BMI of 50 by 28wks transfer to [facility] DVT prophylaxis- Lovenox if CS and BMI >35 Urinary tract infection in m other during first trimester of 05/28/2023 08/27/2025 Overview (09/26/2024): Ecoli.- Treated SAGAR in 4 weeks- mix growth Encounters Date Type Department Care Team Description 08/27/2025 11:00 AM EDT Office Visit Obstetrics and Gynecology - [address] [phone] Nisha Calhoun CNM PCB (post coital bleeding) (Primary Dx); Irregular periods; Intrauterine device surveillance; Screen for STD (sexually transmitted disease); Dysmenorrhea; Menorrhagia with irregular cycle; control counseling 08/27/2025 Results Follow-Up Obstetrics and Gynecology - [address] [phone] Nisha Calhoun CNM 08/27/2025 Telephone Obstetrics and Gynecology - [address] [phone] Nisha Calhoun CNM from Last 3 Months Immunizations Immunization Administration Dates Next Due Influenza Quadravalent, MDCK , 0.5ml, preservative free (Flucelvax) 6mo and older 07/20/2023,08/10/2018 Tdap Tetanus diptheria acell ular pertussis (Boostrix; Adacel) 7yo and older 10/25/2023,09/08/2018,04/15/2017 Surgical History Surgery Date Site/Laterality Comments CHOLECYSTECTOMY 2012 PROCEDURE: HISTORICAL CHOLECYSTECTOMY CHOLECYSTECTOMY PROCEDURE: [place] LAPAROSCOPY SURG CHOLECYSTECTOMY SECTION PROCEDURE: [place] DELIVERY ONLY; COMMENT: 2018 WISDOM TOOTH EXTRACTION [...] to Pro agapito in Second Stage Delivery Location:[facility] 2018 Term 40w 6d 3856 g (136 oz) M CS-Un spec Spinal Livin g [address] Lynette zazueta Delivery Location:[facility] 2023 Term 39w 0d 3459 g (122 oz) F CS-LT ranv Spinal N Livin g Rick do de la Guard ia, MD Complications:None Delivery Location:[facility] Last Filed Vital Signs Vital Sign Reading [...] Care Team (Late st Contact Info) Description 09/20/2025 5:45 PM EST Appointment Radiology Department [address] [phone] 10/29/2025 1:00 PM EST Office Visit [facility] Hematology Oncology [address] [place] [address] Cassie Layton PA [address] [place] [address] Health Maintenance Due Date Last Done Comments [...] Procedure Name Priority Date/Time Associated Diagnosis Comments TESTOSTERONE FREE, BIOAVAILABLE AND TOTAL Routine 09/04/2025 2:05 PM EDT Irregular periods [id number] Routine 2:05 PM EDT Irregular periods DEHYDROEPIANDROSTERONE SULFATE Routine 09/04/2025 2:05 PM EDT Irregular periods LUTEINIZING HORMONE Routine 09/04/2025 2 :05 PM EDT Irregular periods PROLACTIN Routine 09/04/2025 2:05 PM EDT Irregular periods FOLLICLE STIMULATING HORMONE Routine 2:05 PM EDT Irregular periods PROGESTERONE Routine 09/04/2025 2:05 PM EDT Irregular periods THYROID STIMULATING HORMONE WITH REFLEX TO FREE T4 AND FREE T3 Routine 09/04/2025 2:05 PM EDT Menorrhagia with irregular cycle TRICHOMONAS VAGINALIS ANTIGEN Routine 08/27/2025 1:15 PM EDT PCB (post coital bleeding) WET PREP, GENITAL Routine 08/27/2025 1:1 5 PM EDT PCB (post coital bleeding) CHLAMYDIA TRACHOMATIS AND NEISSERIA GONORRHOEAE PCR Routine 08/27/2025 1:15 PM EDT Screen for STD (sexually transmitted disease) CBC WITH AUTO DIFFERENTIAL Routine 08/27 11:41 AM EDT Irregular periods CBC AND DIFFERENTIAL Routine 08/27/2025 11:41 AM EDT Irregular periods THYROID STIMULATING IMMUNOGLOBULIN Routine 08/27/2025 11:41 AM EDT Irregular periods HCG, SERUM, QUALITATIVE Routine 08/27/20 11:41 AM EDT Irregular periods HPV WITH REFLEX GENOTYPE Routine 024 3:53 PM EST Encounter for gynecological examination without abnormal finding DEPRESSION SCREENING Routine 01/24/2024 HEPATITIS C SCREENING Routine 07/09/2023 from Last 3 Months or Most Recently Relevant to Health Maintenance Results * Thyroid stimulating hormone with reflex to free t4 and free t3 (09/04/2025 2:05 PM EDT) TSH 1.04 0.40 - 4.00 mcIU/mL LAB CHEMISTRY METHOD 09/04/2025 8:17 PM EDT [facility] Blood Venous blood specimen / Unknown Venipuncture / Unknown 09/04/2025 2:05 PM EDT 09/04/2025 2:05 PM EDT us Nisha HOROWITZM LAB BLOOD ORDERABLES Final Res ult [facility] [address] [place] [address], [place] [phone] * Testosterone free, bioavailable and total (09/04/2025 2:05 PM EDT) Testosterone 19 9 - 48 ng/dL LAB CHEMISTRY METHOD 09/04/2025 8:17 PM EDT [facility] Testosterone, Free 0.3 0.0 - 0.5 ng/dL LAB CHEMISTRY METHOD 09/04/2025 8:17 PM EDT [facility] Testosterone, Bioavailable 6 1 - 9 ng/dL LAB CHEMISTRY METHOD 09/04/2025 8:17 PM EDT [facility] Sex Hormone Binding 51.2 See Comment nmol/L LAB CHEMISTRY METHOD 09/04/2025 8:17 PM EDT [facility] Comment: FEMALES: pre-menopausal 10.8 - >180 post-menopausal 23.2 - 159.1 MALES: 21-49 years 14.6 - 94.6 50-89 years 21.6 - 113.1 CHILDREN: No established reference range Over the counter supplements containing high doses of biotin may interfere with this assay. If interference is suspected, patients should be retested after refraining from biotin supplements for 72 hours. Albumin 3.9 3.2 - 5.0 g/dL LAB CHEMISTRY METHOD 09/04/2025 8:17 PM EDT [facility] Blood Venous blood specimen / Unknown Venipuncture / Unknown 09/04/2025 2:05 PM EDT 09/04/2025 2:05 PM EDT us Nisha Calhoun CNM LAB BLOOD ORDERABLES Final Res ult [facility] [address] [place] [address], [place] [phone] * 07-Zjwkb-Ubpmlxyfreqlehvfati (09/04/2025 2:05 PM EDT) 17-alpha Hydroxyprogesterone 74 35 - 413 ng/dL 09/07/2025 1:24 PM EDT [facility] Comment: Test performed at [facility], [address], [place] [address] Kaylee Doe MD, PhD - Construction Equipment Mechanic Helper Blood Venous blood specimen / Unknown Venipuncture / Unknown 09/04/2025 2:05 PM EDT 09/04/2025 2:05 PM EDT Nisha Calhoun CN LAB BLOOD ORDERABLES Final Res ult [facility] [address] [place] [address] * Prolactin (09/04/2025 2:05 PM EDT) Pathologist [facility] Prolactin 24.60 See Comment ng/mL LAB CHEMISTRY METHOD 09/04/2025 4:50 PM EDT [facility] Comment: Prolactin Reference Ranges (ng/mL) Non 2.2 - 30.3 8.1 - 347.6 Postmenopausal 0.7 - 31.5 Blood Venous blood specimen / Unknown Venipuncture / Unknown 09/04/2025 2:05 PM EDT 09/04/2025 2:05 PM EDT Nisha Calhoun CN LAB BLOOD ORDERABLES Final Res ult [facility] [address] [place] [address], [place] [phone] * Progesterone (09/04/2025 2:05 PM EDT) Progesterone 1.1 ng/mL LAB CHEMISTRY METHOD 09/04/2025 4:50 PM EDT [facility] Comment: PROGESTERONE REFERENCE RANGES (NG/ML) FEMALES NORMALLY MENSTRUATING: FOLLICULAR PHASE 0.2 - 1.7 MIDCYCLE PEAK 2.3 - 242 LUTEAL PHASE 8.8 - 21.6 POSTMENOPAUSAL <0.2 - 0.9 : FIRST TRIMESTER 11.4 - 41.0 SECOND TRIMESTER 13.5 - 156 THIRD TRIMESTER 51.4 - >200 This assay should not be used in patients taking DHEA supplements as part of IVF treatment. A metabolite (DHEA-S) of this supplement has been shown to cross-react with the progesterone assay and cause falsely elevated results. Blood Venous blood specimen / Unknown Venipuncture / Unknown 09/04/2025 2:05 PM EDT 09/04/2025 2:05 PM EDT Nisha Calhoun [facility] BLOOD ORDERABLES Final Res ult Performing Organization Address [facility]/ZIP Co de Phone Number [facility] [address] [place] [address], * Dehydroepiandrosterone Sulfate (09/04/2025 2:05 PM EDT) DHEA Sulfate 191.8 53.8 - 334.6 mcg/dL LAB CHEMISTRY METHOD 09/04/2025 5:11 PM EDT [facility] Blood Venous blood specimen / Unknown Venipuncture / Unknown 09/04/2025 2:05 PM EDT 09/04/2025 2:05 PM EDT Narrative [facility] - 09/04/2025 5:11 PM EDT Over the counter supplements containing high doses of biotin may interfere with this assay. If interference is suspected, patients shoud be retested after refraining from biotin supplements for 72 hours. Nisha Calhoun [facility] BLOOD ORDERABLES Final Res ult Performing Organization Address [facility]/ZIP Co de Phone Number [facility] [address] [place] [address], * Luteinizing hormone (09/04/2025 2:05 PM EDT) Luteinizing Hormone 35.3 See Comment mIU/mL LAB CHEMISTRY METHOD 09/04/2025 4:40 PM EDT [facility] Blood Venous blood specimen / Unknown Venipuncture / Unknown 09/04/2025 2:05 PM EDT 09/04/2025 2:05 PM EDT Narrative [facility] - 09/04/2025 4:40 PM EDT LH REFERENCE RANGES (MIU/ML) FEMALES NORMALLY MENSTRUATING: FOLLICULAR PHASE 1.9 - 12.8 MIDCYCLE PEAK 22.8 - 76.1 LUTEAL PHASE 0.6 - 13.5 POSTMENOPAUSAL: ON HRT 1.1 - 52.4 UNTREATED 8.6 - 61.8 Nisha Calhoun [facility] BLOOD ORDERABLES Final Res ult Performing Organization Address [facility]/ZIP Co de Phone Number [facility] [address] [place] [address], [place] [phone] * Follicle stimulating hormone (09/04/2025 2:05 PM EDT) Follicle Stimulating Hormone 11.9 See Comment mIU/mL LAB CHEMISTRY METHOD 09/04/2025 4:40 PM EDT [facility] Comment: FSH REFERENCE RANGES (MIU/ML) FEMALES NORMALLY MENSTRUATING: FOLLICULAR PHASE 2.3 - 12.6 MIDCYCLE PEAK 5.2 - 17.5 LUTEAL PHASE 1.7 - 9.5 POSTMENOPAUSAL: ON HRT 5.9 - 72.8 UNTREATED 12.7 - 132.2 Blood Venous blood specimen / Unknown Venipuncture / Unknown 09/04/2025 2:05 PM EDT 09/04/2025 2:05 PM EDT Nisha [facility] LAB BLOOD ORDERABLES Final Res ult [facility] [address] [place] [address], [place] [phone] * Trichomonas vaginalis antigen (08/27/2025 1:15 PM EDT) Trichomonas vaginalis Negative Negative 08/27/2025 7:43 PM EDT [facility] Swab Vaginal structure / Unknown Non-blood Collection / Unknown 08/27/2025 1:15 PM EDT 08/27/2025 1:15 PM EDT us Nisha Calhoun CNM LAB MICROBIOLOGY - GENERAL ORD ERABLES Final Result [facility] [address] [place] [address], [place] [phone] * Chlamydia trachomatis and Neisseria gonorrhoeae molecular study (08/27/2025 1:15 PM EDT) Neisseria gonorrhoeae PCR Negative Negative LAB MOLECULAR DIAGNOSTICS METHOD 08/28/2025 10:07 AM EDT [facility] Chlamydia trachomatis PCR Negative Negative LAB MOLECULAR DIAGNOSTICS METHOD 08/28/2025 10:07 AM EDT [facility] Swab Cervix uteri structure / Unknown Non-blood Collection / Unknown 08/27/2025 1:15 PM EDT 08/27/2025 1:15 PM EDT us Nisha HOROWITZ LAB MICROBIOLOGY - GENERAL ORD ERABLES Final Result [facility] [address] [place] [address], * Wet prep, genital (08/27/2025 1:15 PM EDT) Clue Cells, Wet Prep Negative Negative 08/27/2025 7:43 PM EDT [facility] Yeast, Wet Prep Negative Negative 08/27/2025 7:43 PM EDT [facility] Trichomonas, Wet Prep Indeterminate Negative 08/27/2025 7:43 PM EDT [facility] Comment:Refer to Trichomonas antigen. Swab Vaginal structure / Unknown Non-blood Collection / Unknown 08/27/2025 1:15 PM EDT 08/27/2025 1:15 PM EDT Nisha Calhoun CNM LAB MICROBIOLOGY - GENERAL ORD ERABLES Final Result [facility] [address] [place] [address], [place] [phone] * (ABNORMAL) CBC auto differential (08/27/2025 11:41 AM EDT) WBC 11.0(H) 4.8 - 10.8 K/mcL LAB HEMETOLOGY METHOD 08/27/2025 2:23 PM EDT [facility] RBC 4.60 3.80 - 4.80 M/mcL LAB HEMETOLOGY METHOD 08/27/2025 2:23 PM EDT [facility] Hemoglobin 12.7 11.5 - 16.0 g/dL LAB HEMETOLOGY METHOD 08/27/2025 2:23 PM EDT [facility] Hematocrit 39.2 35.0 - 47.0 % LAB HEMETOLOGY METHOD 08/27/2025 2:23 PM EDT [facility] MCV 85.6 79.0 - 98.0 FL LAB HEMETOLOGY METHOD 08/27/2025 2:23 PM EDT [facility] MCH 27.7 27.0 - 32.0 pcg LAB HEMETOLOGY METHOD 08/27/2025 2:23 PM EDT [facility] MCHC 32.4 32.0 - 37.0 g/dL LAB HEMETOLOGY METHOD 08/27/2025 2:23 PM EDT [facility] RDW 13.2 11.0 - 15.0 % LAB HEMETOLOGY METHOD 08/27/2025 2:23 PM EDT [facility] Platelets 419(H) 130 - 400 K/mcL LAB HEMETOLOGY METHOD 08/27/2025 2:23 PM EDT [facility] MPV 9.2 7.0 - 11.0 FL LAB HEMETOLOGY METHOD 08/27/2025 2:23 PM EDT [facility] NRBC 0.0 <1.0 % LAB HEMETOLOGY METHOD 08/27/2025 2:23 PM [facility] NRBC Absolute 0.00 <0.10 K/mcL LAB HEMETOLOGY METHOD 08/27/2025 2:23 PM [facility] Neutrophils Relative 59.5 % LAB HEMETOLOGY METHOD 08/27/2025 2:23 PM [facility] Lymphocytes Relative 32.1 % LAB HEMETOLOGY METHOD 08/27/2025 2:23 PM [facility] Monocytes Relative 6.2 % LAB HEMETOLOGY METHOD 08/27/2025 2:23 PM [facility] Eosinophils Relative 1.6 % LAB HEMETOLOGY METHOD 08/27/2025 2:23 PM [facility] Basophils Relative 0.4 % LAB HEMETOLOGY METHOD 08/27/2025 2:23 PM [facility] Immature Granulocytes Relative 0.2 % LAB HEMETOLOGY METHOD 08/27/2025 2:23 PM [facility] Neutrophils Absolute 6.53 1.50 - 7.00 K/mcL LAB HEMETOLOGY METHOD 08/27/2025 2:23 PM T [facility] Lymphocytes Absolute 3.53 1.00 - 5.00 K/mcL LAB HEMETOLOGY METHOD 08/27/2025 2:23 PM [facility] Monocytes Absolute 0.68 0.20 - 1.00 K/mcL LAB HEMETOLOGY METHOD 08/27/2025 2:23 PM [facility] Eosinophils Absolute 0.18 0.00 - 0.50 K/mcL LAB HEMETOLOGY METHOD 08/27/2025 2:23 PM EDT [facility] Basophils Absolute 0.04 0.00 - 0.20 K/[facility] LAB HEMETOLOGY METHOD 08/27/2025 2:23 PM EDT [facility] Immature Granulocytes Absolute 0.02 0.00 - 0.03 K/[facility] LAB HEMETOLOGY METHOD 08/27/2025 2:23 PM EDT [facility] Blood Venous blood specimen / Unknown Venipuncture / Unknown 08/27/2025 11:41 AM EDT 08/27/2025 11:41 AM EDT us Nisha Calhoun [facility] BLOOD ORDERABLES Final Res ult [facility] [address] [place] [address], [place] [phone] * Thyroid stimulating immunoglobulin (08/27/2025 11:41 AM EDT) Thyroid Stimulating Immunoglobulin <0.10 <0.10 IU/L 08/30/2025 3:19 PM EDT [facility] Comment: Thyroid stimulating immunoglobulins (TSI) concentrations greater than or equal to (>=) 0.55 IU/L have a clinical sensitivity of at least 98.6%, and a clinical specificity of at least 98.5%, for the differential diagnosis of Graves' Disease. TSI concentrations for patients with other thyroid or autoimmune diseases range from 0.11 to 0.39 IU/L. Test performed at [facility], [address] [place] [place] [address] Kaylee Doe MD, PhD - Construction Equipment Mechanic Helper Blood Venous blood specimen / Unknown Venipuncture / Unknown 08/27/2025 11:41 AM EDT 08/27/2025 11:41 AM EDT us Nisha Calhoun CN LAB BLOOD ORDERABLES Final Res ult [facility] [address] [place] [address] * HCG, serum, qualitative (08/27/2025 11:41 AM EDT) [facility] hCG Qual Negative Negative 08/27/2025 2:14 PM EDT [facility] Blood Venous blood specimen / Unknown Venipuncture / Unknown 08/27/2025 11:41 AM EDT 08/27/2025 11:41 AM EDT Nisha Calhoun CNM LAB BLOOD ORDERABLES Final Res ult [facility] [address] [place] [address], [place] [phone] * HPV with reflex genotype (11/06/2024 3:53 PM EST) [facility] HPV Negative Negative LAB MICROBIOLOGY METHOD 11/10/2024 2:02 PM EST [facility] Brushing/Spatula Cervix uteri structure / Unknown 11/06/2024 3:53 PM EST 11/09/2024 7:41 AM EST Jayde Rosenberg CNM LAB MOLECULAR DIAGNOSTICS ORDER JILL Final Result [facility] [address] [place] [address], [place] [phone] * Depression Screening (01/24/2024) [facility] Depression Screening abstracted us Historical Provider HEALTH MAINTENANCE Final Result * Hepatitis C Screening (07/09/2023) [facility] Hepatitis C Screening abstracted us Historical Provider HEALTH MAINTENANCE Final Result from Last 3 Months or Most Recently Relevant to Health Maintenance Insurance [address] [place] [id number] [facility] Care Teams Painter Sign Maintenance Relationship Specialty Start Date End Date Amber Lomax MD [address] [facility] , [address] [facility] Physician Associ D/B/A: [facility] [place] PCP - General Internal Medicine 09/06/18
--- OUTSIDE RECORDS SUMMARY | 2025-09-14 09:48 | XMS_ITS | Clinical Summary ---
Author Organization [employer] Address [address] [place] [address] Care Team Providers Care Hatchery Helper Name Role Phone Unavailable Primary Care Provider Unavailabl e Immunizations Immunization Administration Dates Next Due DTP 05/25/1997, 4,01/23/1994,06/18 HPV, Quadrivalent 04/06/2008,12/06/2007,08/30/20 07 Hep B, Adolescent or Pediatric 06/17/1998,1996,05/25/1997 Hib (PRP-T) 08/12/1994,01/23/1994,1993 IPV 05/25/1997, 4,01/23/1994,06/18 Influenza Injectable Quadriv alant Preservative Free IIV4 MDCK 07/20/2023,08/10/2018 Influenza, IIV3, injectable 07/15/2017,1 12/11/2007,12/06/2007,09/17 Influenza, Split (incl. nica fied surface antigen) 09/24/2010 MMR 05/25/1997,08/12/1994 Meningococcal MCV4P ACYW-135 08/30/2007 Novel [id number], all formulations 09/18/2009 Pfizer Covid-19 Vaccine 12+ [...] patient's age to complete this topic Insurance [facility] (O) N PARTIAL
--- OUTSIDE RECORDS SUMMARY | 2025-09-14 09:48 | XMS_ITS | Encounter Summary ---
Author Organization [facility] Address [address] [place] [address] Care Team Providers Care Library Media Technician Name Role Phone Amber Lomax MD Primary Care Provider [phone] Reason for Referral * Imaging (Routine) - Pending Review Specialty Diagnoses / Procedures Referred By Contac t Referred To Contact Radiology Diagnoses Menorrhagia with irregular cycle PCB (post coital bleeding) Procedures US Pelvis Non OB Complete Nisha Calhoun CNM [address] [place], [place] Phone: tel: fax: [address] Phone: tel: Referral ID Status Reason Start Date Expiration Date V isits Requested Visits Authorized [id number] Pending Review 09/05/2025 09/05/2026 1 1 * Consultation (Routine) - Authorized Specialty Diagnoses / Procedures Referred By Contact Referred To Contact Hematology and Oncology Diagnoses Menorrhagia with irregular cycle Elevated platelet count Nisha Calhoun CNM [address] [place] [address] Phone: tel: fax: [facility] Hematology Oncology [address] [place] [phone] Phone: tel: fax: Referral ID Status Reason Start Date Expiration Date Visits Requested Visits Authorized [id number] Authorized Consult and Treat 09/01/2025 09/01/2026 1 1 Encounter Details Date Type Department Care Team (Late Contact Info) Description 08/27/2025 Results Follow-Up Obstetrics and Gynecology - [address] [phone] Nisha Calhoun CNM [address] [place], [place] Social History Tobacco Use Types Packs/Day [...] as of this encounter Plan of Treatment Upcoming Encounters Date Type Department Care Team (Late Contact Info) Description 09/20/2025 5:45 PM EST Appointment Radiology Department - [address] [phone] 10/29/2025 1:00 PM EST Office Visit [facility] Hematology Oncology [address] [place] [phone] Cassie Layton PA [address] [place] [address] Scheduled Orders Name Type Priority Associated Diagnoses Orde r Schedule US Pelvis Non OB Complete Imaging Routine Menorrhagia with irregular cycle PCB (post coital bleeding) Expected: 09/05/2025, Expires: 09/05/2026 Scheduled Referrals Name Type Priority Associated Diagnoses Order Schedule Ambulatory referral to Hematology / Oncology Outpatient Referral Routine Menorrhagia with irregular cycle Elevated platelet count 1 Occurrences starting 09/01/2025 until 09/01/2026 documented as of this encounter Results * Thyroid stimulating hormone with reflex to free t4 and free t3 (09/04/2025 2:05 PM EDT) TSH 1.04 0.40 - 4.00 mcIU/mL LAB CHEMISTRY METHOD 09/04/2025 8:17 PM EDT [facility] Blood Venous blood specimen / Unknown Venipuncture / Unknown 09/04/2025 2:05 PM EDT 09/04/2025 2:05 PM EDT us Nisha Calhoun CNM LAB BLOOD ORDERABLES Final Res ult [facility] [address] [place] [address], [place] [phone] documented in this encounter Visit Diagnoses Diagnosis Elevated platelet count- Primary Essential thrombocythemia Menorrhagia with irregular cycle PCB (post coital bleeding) Postcoital bleeding documented in this encounter Care Teams Library Media Technician Relationship Specialty Start Date End Date Amber Lomax MD [address] [facility] , [address] [facility] Physician Associ D/B/A: [facility] [place] PCP - General Internal Medicine 09/06/18 documented as of this encounter
--- OUTSIDE RECORDS SUMMARY | 2025-09-14 09:48 | XMS_ITS | Encounter Summary ---
Author Organization [facility] Address [address] [place] [address] Care Team Providers Care Beef Pusher Name Role Phone Amber Lomax MD Primary Care Provider [phone] Reason for Visit * Reason Onset Date Comments Return Call From Center/Facility 08/27/2025 Encounter Details Date Type Department Care Team ([facility] st Contact Info) Description 08/27/2025 Telephone Obstetrics and Gynecology - [place] [address] [place], [place] [phone] Nisha Calhoun, [facility] [address] [place], [place] Social History Tobacco Use Types Packs/Day [...] documented in this encounter Plan of Treatment Upcoming Encounters Date Type Department Care Team (Late st Contact Info) Description 09/20/2025 5:45 PM EST Appointment Radiology Department [address] [phone] 10/29/2025 1:00 PM EST Office Visit [facility] Hematology Oncology [address] [place] [address] Cassie Layton PA [address] [place] [address] documented as of this encounter Visit Diagnoses Not on filedocumented in this encounter Care Teams Beef Pusher Relationship Specialty Start Date End Date Amber Lomax MD [address] [facility] , [address] [facility] Physician Associ D/B/A: [facility] [place] PCP - General Internal Medicine 09/06/18 documented as of this encounter
== END 2025-09-14 10:23 | disposition home or self-care (01) ==
PROVIDERS: PCP Internal Medicine; Visit Provider Nurse Practitioner Family
DX: Z13.9 Encounter for screening, unspecified (principal); J02.9 Acute pharyngitis, unspecified

== ENCOUNTER 2025-10-08 12:31 | Outpatient (REF) | payer OTHER, SELFPAY ==
[2025-10-08 16:31] LABS: Appearance Urine Cloudy; Glucose Urine UA Negative (Negative); PH 7.5 (5.0-9.0); Specific Gravity - Urine <= 1.005 (1.005-1.025); UMIC TRIGGER UACC YES
[2025-10-08 16:48] LABS: UACC Culture Trigger YES
[2025-10-09 05:30] LABS: Bacterial Vaginosis PCR NEGATIVE (Negative); Candida Group PCR NOT DETECTED (Not Detect); Candida glab krusei PCR NOT DETECTED (Not Detect); Trichomonas vaginalis PCR NOT DETECTED (Not Detect)
[2025-10-09 06:16] LABS: CT PCR NOT DETECTED (Not Detect.); NG PCR NOT DETECTED (Not Detect.)
== END 2025-10-08 12:32 | disposition home or self-care (01) ==
LOC: HO.LAB 12:31
PROVIDERS: PCP Internal Medicine; Visit Provider Nurse Practitioner Family
DX: N76.0 Acute vaginitis (principal); Z20.2 Contact with and (suspected) exposure to infections with a predominantly sexual mode of transmission; Z79.899 Other long term (current) drug therapy
CPT/HCPCS: 81001; 81003; 81515; 87086; 87088; 87186; 87491; 87591; 99212

== ENCOUNTER 2025-10-08 12:31 | Outpatient (AMB) | payer OTHER, SELFPAY ==
--- OUTSIDE RECORDS SUMMARY | 2025-10-05 14:00 | XMS_ITS | Encounter Summary ---
Author Organization [facility] Address [address] [place] [address] Care Team Providers Care Sewer Digger Name Role Phone Amber Lomax MD Primary Care Provider [phone] Reason for Visit * Reason Comments Pelvic Pain Encounter Details Date Type Department Care Team (Latest Contact Info) Description 10/05/2025 2:00 PM EST Office Visit [facility]st[facility] [place] [phone] Loni Chin [address] [address] Encounter for IUD removal (Primary Dx); Vaginal pain Social History Tobacco Use Types Packs/Day Years [...] on file documented as of this encounter Last Filed Vital Signs Vital Sign Reading Time Taken Comments Blood Pressure 106/81 10/05/2025 1:48 PM EST Pulse 84 10/05/2025 1:48 PM EST Temperature - - Respiratory Rate 18 10/05/2025 1:48 PM EST Oxygen Saturation - - Inhaled Oxygen Concentration - - Weight 68.9 kg (152 lb) 10/05/2025 1:48 PM EST Height 147.3 cm (4' 10 ) 10/05/2025 1:48 PM EST Body Mass Index 31.77 10/05/2025 1:48 PM EST documented in this encounter Ordered Prescriptions Prescription Sig Dispense Quantity Refills Last Filled Start Date End Date terconazole (TERAZOL 7) 0.4 % vaginal cream Insert 1 applicator into the vagina at bedtime for 7 days. 45 g 10/05/2025 documented in this encounter Progress Notes * Loni Chin CNM - 10/05/2025 2:00 PM ESTAssociated Order(s): IUD Post-Procedure Diagnose(s): Encounter for IUD removal Subjective Patient ID: Kirby Samson is a 30 y.o. female. Chief Complaint Patient presents with Pelvic Pain Pt feels like her IUD is coming out, causing pain and brown discharge since Wed night. She says shefeels plastic out of her cervix. She wants it to be removed, and will use condoms until feeling better, then will come in for Mirena insert. Pelvic Pain The patient's primary symptoms include pelvic pain. The following portions of the patient's chart were reviewed in this encounter and updated as appropriate: Allergies Review of Systems Genitourinary: Positive for pelvic pain. IUD Removal Date/Time: 10/05/2025 2:00 PM Performed by: Loni Chin CNM Authorized by: Loni Chin CNM Informed Consent: Site: Uterus Relevant images/test results available and reviewed: no Health status cleared: Yes Procedure/treatment, purpose, treatment alternatives, risks/potential complications and benefits explained: yes Patient questions answered: yes Patient agrees, verbalizes understanding, and wants to proceed: yes Consent given by: Patient Informed consent discussion completed by Physician/CB with patient: Written; patient signed and dated; copy to patient Pre-procedure timeout performed: yes Removal Procedure: Strings visible: yes (small amount of plastic seen as well) Removal device: Packing forceps Removal reason: Malpositioned IUD Removal successful: yes Complications: no She will come back in when vagina feels normal again for Mirena insertion. Wet smear done today. Ph 4.0 Objective OBGyn Exam Assessment/Plan documented in this encounter Plan of Treatment Upcoming Encounters Date Type Department Care Team (Late st Contact Info) Description 10/29/2025 1:00 PM EST Office Visit [facility] Hematology Oncology [address] [place] [phone] Cassie Layton PA [address] [place] [address] documented as of this encounter Procedures Procedure Name Priority Date/Time Associated Diagnosis Comments TRICHOMONAS VAGINALIS ANTIGEN Routine 10/05/2025 2:04 PM EST Encounter for IUD removal WET PREP, GENITAL Routine 10/05/2025 2:0 4 PM EST Encounter for IUD removal DC REMOVAL INTRAUTERINE DEVICE Routine 10/05/2025 2:00 PM EST Encounter for IUD removal documented in this encounter Results * Trichomonas vaginalis antigen (10/05/2025 2:04 PM EST) Trichomonas vaginalis Negative Negative 10/05/2025 7:[address] [facility] Swab Vaginal structure / Unknown Non-blood Collection / Unknown 10/05/2025 2:04 PM EST 10/05/2025 2:04 PM EST Loni Chin CNM LAB MICROBIOLOGY - GENERAL O RDERABLES Final Result [facility] [address] [place] [address], * Wet prep, genital (10/05/2025 2:04 PM EST) Clue Cells, Wet Prep Negative Negative 10/05/2025 6:[address] [facility] Yeast, Wet Prep Negative Negative 10/05/2025 6:[address] [facility] Trichomonas, Wet Prep Indeterminate Negative 10/05/2025 6:[address] [facility] Comment:Refer to Trichomonas antigen. Swab Vaginal structure / Unknown Non-blood Collection / Unknown 10/05/2025 2:04 PM EST 10/05/2025 2:04 PM EST Loni Chin CNM LAB MICROBIOLOGY - GENERAL O RDERABLES Final Result [facility] [place] ([facility]) [facility] [address] [place] [address], * DC REMOVAL INTRAUTERINE DEVICE (10/05/2025 2:00 PM EST) Loni Jenkins CNM - 10/05/2025 2:00 PM EST Loni Chin CNM 10/05/2025 2:02 PM IUD Removal Date/Time: 10/05/2025 2:00 PM Performed by: Loni Chin CNM Authorized by: Loni hCin CNM Informed Consent: Site: Uterus Relevant images/test results available and reviewed: no Health status cleared: Yes Procedure/treatment, purpose, treatment alternatives, risks/potential complications and benefits explained: yes Patient questions answered: yes Patient agrees, verbalizes understanding, and wants to proceed: yes Consent given by: Patient Informed consent discussion completed by Physician/CB with patient: Written; patient signed and dated; copy to patient Pre-procedure timeout performed: yes Removal Procedure: Strings visible: yes (small amount of plastic seen as well) Removal device: Packing forceps Removal reason: Malpositioned IUD Removal successful: yes Complications: no She will come back in when vagina feels normal again for Mirena insertion. Wet smear done today. Ph 4.0 Objective OBGyn Exam Assessment/Plan Loni Chin CNM IN CLINIC/BEDSIDE ORDERABLES Final Result documented in this encounter Visit Diagnoses Diagnosis Encounter for IUD removal- Primary Vaginal pain Unspecified symptom associated with female genital organs documented in this encounter Care Teams Sewer Digger Relationship Specialty Start Date End Date Amber Lomax MD [address] [place] [address] Physician Associ D/B/A: [facility] PCP - General Internal Medicine 09/06/18 documented as of this encounter
[2025-10-08 12:39] VITALS: BP 110/74; PULSE 99; TEMP 36.7; O2SAT 99; BMI 31.8
--- NOTE | 2025-10-08 12:39 | AM.OFFWIN_ITS ---
Intake Vital Signs 10/08/25 12:39 Height 4 ft 10 in Weight 152 lb BMI 31.8 BP 110/74 Blood Pressure Location Lt brachial Position Sitting Pulse 99 Pulse Source Pulse Oximeter Temp 98.1 F Temp Source Oral Pulse Oximetry (%) 99 Oxygen Delivery Method Room Air Intake Visit Reasons: EP Green urine, abdominal/back pian Intake Note: Patient presents c/o burning when urinating, pressure, abdominal pain, right sided back pain x5 days. Patient Tobacco Use Status: Never used Tobacco Allergies No Known Allergies Allergy (Verified 10/08/25 12:48) Medication List - Last Reconciled 10/08/25 by Abigail Schultz NP albuterol sulfate 2.5 mg (3 mL) inhalation Q6H PRN 30 days budesonide-formoterol 80-4.5 mcg/actuation 2 inhalations inhalation BID 30 days epinephrine (EpiPen 2-Arnie) 0.3 mg (0.3 mL) IM Q10M PRN 30 days fluconazole 150 mg PO QWEEK 4 weeks inhalational spacing device (Aerochamber MV spacer) As directed metformin 500 mg PO DAILY 90 days montelukast 10 mg PO BEDTIME nebulizers As directed PNV,calcium 18-mmdw-cdqxg acid 27 mg iron- 1 mg ( Vitamins Plus Low Iron) 1 tab PO DAILY Ventolin HFA 90 mcg/actuation (albuterol sulfate) 2 puffs inhalation Q6H PRN 30 days NS HPI HPI Comments History of Present Illness Details 30 y/o female presents to the [facility] with 5 days of pelvic cramping and dysuria. Reports green-colored urine and malodorous, thick white vaginal discharge. She was seen by her RETAIL PLANNING MANAGER on Wednesday and was diagnosed with a fungal infection, started on Terconazole. She is sexually active with one male partner. She recently had an IUD removed last Wednesday. She is currently her young son. Denies nausea, vomiting, fevers, or chills. [facility] Medical History (Updated 10/08/25 @ 13:28 by Abigail Schultz NP) Vaginitis and vulvovaginitis Chronic allergic rhinitis Constipation by delayed colonic transit Loss of consciousness Class 2 obesity with body mass index (BMI) of 36.0 to 36.9 in adult Asthma Surgical History History of laparoscopic cholecystectomy History of Family History Father Diabetes Mother Epilepsy Social History Housing: Apartment Alcohol intake: never Patient Tobacco Use Status: Never used Tobacco e-Cigarette/Vaping Use: Never Used Second Hand Smoke Exposure: No service: No Current occupational status: unemployed Cognitive needs: No Hearing needs: No Vision needs: No Review of Systems Const All systems reviewed & are unremarkable except as noted in HPI and below Physical Exam Vital Signs: Last Vital Signs Temp 98.1 F 10/08/25 12:39 Pulse 99 10/08/25 12:39 BP 110/74 10/08/25 12:39 Pulse Ox 99 10/08/25 12:39 Oxygen Delivery Method Room Air 10/08/25 12:39 BMI result Body Mass Index 31.8 Const General: no acute distress Nutritional Appearance: overweight Orientation/consciousness: patient oriented x3 GI Inspection: Yes Abdominal panniculus present Palpation (GI): Soft to palpation, not firm, Tenderness to palpation present (GI) suprapubicly, no guarding and not rigid Auscultation: normal bowel sounds General: Yes bladder normal to palpation and Yes no CVA tenderness Speculum Exam - Vagina: abnormal vaginal discharge white, malodorous and cardozo and erythematous Speculum Exam - Cervix: Cervical os open, Abnormal cervical discharge present w delon and malodorous and nontender Bimanual exam- vagina & uterus: bladder normal to palpation and No Cervical tenderness present Bimanual Exam- Adnexa, other: no tenderness OB/external & speculum: Cervical os open Back/Spine/Pelvis Back: no CVA tenderness Neuro General: patient oriented x3 Results AMB Urinalysis, Automated UA Leukoctes 15 Caleb/uL Last Edit by Lindy Travis CMA on 10/08/25 12:55 UA Nitrite Negative Last Edit by Lindy Travis CMA on 10/08/25 12:55 UA Urobilinogen 0.2 mg/dL Last Edit by Lindy Travis CMA on 10/08/25 12: 55 UA Protein 0 mg/dL Last Edit by Lindy Travis CMA on 10/08/25 12:55 UA pH 7.0 Last Edit by Lindy Travis CMA on 10/08/25 12:55 UA Blood 10 Rory/uL Last Edit by Lindy Travis CMA on 10/08/25 12:55 UA Specific [place] 1.005 Last Edit by Lindy Travis CMA on 10/08/25 12 :55 UA Ketone Negative Last Edit by Lindy Travis CMA on 10/08/25 12:55 UA Bilirubin 0 mg/dL Last Edit by Lindy Travis CMA on 10/08/25 12:55 UA Glucose 0 mg/dL Last Edit by Lindy Travis CMA on 10/08/25 12:55 Results Reviewed Results Reviewed: Laboratory Last Values Urine pH (Auto) 7.0 10/08/25 12:54 Specific [place] (Auto) 1.005 10/08/25 12:54 Urine Protein (Auto) 0 mg/dL 10/08/25 12:54 Glucose (UA)(Auto) 0 mg/dL 10/08/25 12:54 Urine Ketones (Auto) Negative 10/08/25 12:54 Urine Blood (Auto) 10 Rory/uL 10/08/25 12:54 Urine Nitrite (Auto) Negative 10/08/25 12:54 Urine Bilirubin (Auto) 0 mg/dL 10/08/25 12:54 Urine Urobilinogen (Auto) 0.2 mg/dL 10/08/25 12:54 Leukocyte Esterase (Auto) 15 Caleb/uL 10/08/25 12:54 Assessment & Plan Assessment & Plan (1) Vaginitis and vulvovaginitis: Code(s): N76.0 - Acute vaginitis Plan: Urinalysis positive for LEUK, will send urine for C&S. Vaginitis panel (BV, yeast, trich) and GC/Chlamydia NAAT Avoid intercourse until results return Avoid scented soaps/douches Orders: Orders Bacterial Vaginosis Panel Today N76.0 - Acute vaginitis UA CC w/rflx Micro + Cult Today N76.0 - Acute vaginitis AMB Urinalysis Automated Today Z13.9 - Encounter for screening, unspecified CT NG by PCR Vag/Cerv Today N76.0 - Acute vaginitis Medications: New fluconazole 150 mg PO QWEEK 4 tabs 0RF 4 weeks N76.0 - Acute vaginitis Coding Level of Care Code Est Pt Level 4 (19142) Diagnoses Vaginitis and vulvovaginitis N76.0 Time Spent (min) 20
--- OUTSIDE RECORDS SUMMARY | 2025-10-08 16:09 | XMS_ITS | Encounter Summary ---
Author Organization [facility] Address [address] [place] [address] Care Team Providers Care Associate Program Manager Name Role Phone Amber Lomax MD Primary Care Provider [phone] Reason for Referral * Imaging (Routine) - Pending Review Specialty Diagnoses / Procedures Referred By Contac t Referred To Contact Radiology Diagnoses Menorrhagia with irregular cycle PCB (post coital bleeding) Procedures US Pelvis Non OB Complete Nisha Calhoun CNM [address] [place], [place] Phone: tel: fax: [address] Phone: tel: Referral ID Status Reason Start Date Expiration Date V isits Requested Visits Authorized [id number] Pending Review 09/05/2025 09/05/2026 1 1 * Consultation (Routine) - Authorized Specialty Diagnoses / Procedures Referred By Contact Referred To Contact Hematology and Oncology Diagnoses Menorrhagia with irregular cycle Elevated platelet count Nisha Calhoun CNM [address] [place] [address] Phone: tel: fax: [facility] Hematology Oncology [address] [place] [phone] Phone: tel: fax: Referral ID Status Reason Start Date Expiration Date Visits Requested Visits Authorized [id number] Authorized Consult and Treat 09/01/2025 09/01/2026 1 1 Encounter Details Date Type Department Care Team (Late Contact Info) Description 08/27/2025 Results Follow-Up Obstetrics and Gynecology - [place] [address] [place], [place] [phone] Nisha Calhoun CNM [address] [place], [place] Social History Tobacco Use Types Packs/Day [...] Department Care Team (Late Contact Info) Description 10/29/2025 1:00 PM EST Office Visit [facility] Hematology Oncology [address] [place] [phone] Cassie Layton PA [address] [place] [address] Scheduled Orders Name Type Priority Associated Diagnoses [...] LAB CHEMISTRY METHOD 09/04/2025 8:17 PM EDT [facility] Blood Venous blood specimen / Unknown Venipuncture / Unknown 09/04/2025 2:05 PM EDT 09/04/2025 2:05 PM EDT Nisha Calhoun CNM LAB BLOOD ORDERABLES Final Res ult [facility] [address] [place] [address], documented in this encounter Visit Diagnoses Diagnosis Elevated platelet count- Primary Essential thrombocythemia Menorrhagia with irregular cycle PCB (post coital bleeding) Postcoital bleeding documented in this encounter Care Teams Associate Program Manager Relationship Specialty Start Date End Date Amber Lomax MD 2 [facility] , [address] Physician Associ D/B/A: [facility] [place] PCP - General Internal Medicine 09/06/18 documented as of this encounter
--- OUTSIDE RECORDS SUMMARY | 2025-10-08 16:09 | XMS_ITS | Clinical Summary ---
Author Organization [facility] Address [address] [place] [address] Phone Care Team Providers Care Computer Network Support Specialist Name Role Phone Amber Lomax MD Primary Care Provider [phone] Allergies Active Allergy Reactions Criticality Noted Date [...] each day. 90 capsule 3 11/06/20 24 Active Additional Information Patient not taking.Reported on 08/27/2025 docusate sodium (COLACE) 100 mg capsule Take 1 capsule (100 mg total) by mouth 2 (two) times a day. 180 each 3 11/06/20 24 Active Additional Information Patient not taking.Reported on 08/27/2025 ferrous sulfate 325 mg (65 mg elemental iron) tablet TAKE 1 TABLET BY MOUTH EVERY OTHER DAY 45 tablet 1 11/23/19 25 Active Additional Information Patient not taking.Reported on 08/27/2025 M- Plus 27 mg iron- 1 mg tabletIndicati ons:Other specified health status TAKE 1 TABLET BY MOUTH EVERY DAY 90 tablet 3 07/22/20 25 Active metFORMIN (GLUCOPHAGE) 500 mg tablet Take 1 tablet (500 mg total) by mouth 1 (one) time each day. 08/23/20 Active ibuprofen (ADVIL,MOTRIN) 600 mg tabletIndicati ons:Dysmenorrh ea Take 1 tablet (600 mg total) by mouth every 6 (six) hours if needed for moderate pain (and heavy periods). 90 tablet 08/27/20 Active terconazole (TERAZOL 7) 0.4 % vaginal cream Insert 1 applicator into the vagina at bedtime for 7 days. 45 g 10/05/20 25 025 Active Active Problems Problem Noted Date Diagnosed [...] BMI of 50 by 28wks transfer to [facility] DVT prophylaxis- Lovenox if CS and BMI >35 Urinary tract infection in m other during first trimester of 05/28/2023 08/27/2025 Overview (09/26/2024): Ecoli.- Treated SAGAR in 4 weeks- mix growth Encounters Date Type Department Care Team Description 10/05/2025 2:00 PM EST [facility] [address] [place] [address] Loni Chin CNM Encounter for IUD removal (Primary Dx); Vaginal pain 08/27/2025 11:00 AM EDT Office Visit Obstetrics and Gynecology - [address] [phone] Nisha Calhoun CNM PCB (post coital bleeding) (Primary Dx); Irregular periods; Intrauterine device surveillance; Screen for STD (sexually transmitted disease); Dysmenorrhea; Menorrhagia with irregular cycle; control counseling 08/27/2025 Results Follow-Up Obstetrics and Gynecology - [address] [phone] Nisha Calhoun CNM 08/27/2025 Telephone Obstetrics and Gynecology - [address] [phone] Nisha Calhoun CNM from Last 3 Months Immunizations Immunization Administration Dates Next Due Influenza Quadravalent, MDCK , 0.5ml, preservative free (Flucelvax) 6mo and older 07/20/2023,08/10/2018 Tdap Tetanus diptheria acell ular pertussis (Boostrix; Adacel) 7yo and older 10/25/2023,09/08/2018,04/15/2017 Surgical History Surgery Date Site/Laterality Comments CHOLECYSTECTOMY 2012 PROCEDURE: HISTORICAL CHOLECYSTECTOMY CHOLECYSTECTOMY PROCEDURE: [place] LAPAROSCOPY SURG CHOLECYSTECTOMY SECTION PROCEDURE: [place] DELIVERY ONLY; COMMENT: 2018 WISDOM TOOTH EXTRACTION [...] to Pro agapito in Second Stage [facility] Term 40w 6d 3856 g (136 oz) M CS-Un spec Spinal Livin g [address] Lynette benavidez [place] Delivery Location:[facility] 2023 Term 39w 0d 3459 g (122 oz) F CS-LT ranv Spinal N Livin g Rick Del Real MD Complications:None Delivery Location:[facility] Last Filed Vital Signs Vital Sign [...] Mass Index 31.77 10/05/2025 1:48 PM EST Plan of Treatment Upcoming Encounters Date Type Department Care Team (Late st Contact Info) Description 10/29/2025 1:00 PM EST Office Visit [facility] Hematology Oncology [address] [place] [phone] Cassie Layton PA [address] [place] [address] Health Maintenance Due Date Last Done Comments [...] 4 PM EST Encounter for IUD removal [place] REMOVAL INTRAUTERINE DEVICE Routine 10/05/2025 2:00 PM EST Encounter for IUD removal TESTOSTERONE FREE, BIOAVAILABLE AND TOTAL Routine 09/04/2025 2:05 PM EDT Irregular periods 85-[id number] Routine 2:05 PM EDT Irregular periods DEHYDROEPIANDROSTERONE [...] abnormal finding HM DEPRESSION SCREENING Routine 01/24/2024 HEPATITIS C SCREENING Routine 07/09/2023 from Last 3 Months or Most Recently Relevant to Health Maintenance Results * Trichomonas vaginalis antigen (10/05/2025 2:04 PM EST) Only the most recent of2 resultswithin the time period is included. Trichomonas vaginalis Negative Negative 10/05/2025 7:21 PM EST [facility] Swab Vaginal structure / Unknown Non-blood Collection / Unknown 10/05/2025 2:04 PM EST 10/05/2025 2:04 PM EST Loni Chin [facility] MICROBIOLOGY - GENERAL O RDERABLES Final Result [facility] [address] [place] [address], [place] [phone] * Wet prep, genital (10/05/2025 2:04 PM EST) Only the most recent of2 resultswithin the time period is included. Clue Cells, Wet Prep Negative Negative 10/05/2025 6:40 PM EST [facility] Yeast, Wet Prep Negative Negative 10/05/2025 6:40 PM EST [facility] Trichomonas, Wet Prep Indeterminate Negative 10/05/2025 6:40 PM EST [facility] Comment:Refer to Trichomonas antigen. Swab Vaginal structure / Unknown Non-blood Collection / Unknown 10/05/2025 2:04 PM EST 10/05/2025 2:04 PM EST Loni Chin CNM LAB MICROBIOLOGY - GENERAL O RDERABLES Final Result [facility] [address] [place] [address], [place] [phone] * [place] REMOVAL INTRAUTERINE DEVICE (10/05/2025 2:00 PM EST) [...] Chin CNM IN CLINIC/BEDSIDE ORDERABLES Final Result * Thyroid stimulating hormone with reflex to free t4 and free t3 (09/04/2025 2:05 PM EDT) TSH 1.04 0.40 - 4.00 mcIU/mL LAB CHEMISTRY METHOD 09/04/2025 8:17 PM EDT [facility] Blood Venous blood specimen / Unknown Venipuncture / Unknown 09/04/2025 2:05 PM EDT 09/04/2025 2:05 PM EDT Nisha Calhoun CNM LAB BLOOD ORDERABLES Final Res ult [facility] [address] [place] [address], [place] [phone] * Testosterone free, bioavailable and total (09/04/2025 2:05 PM EDT) Testosterone 19 9 - 48 ng/dL LAB CHEMISTRY METHOD 09/04/2025 8:17 PM EDT [facility] Testosterone, Free 0.3 0.0 - 0.5 ng/dL LAB CHEMISTRY METHOD 09/04/2025 8:17 PM EDT [facility] Testosterone, Bioavailable 6 1 - 9 ng/dL LAB CHEMISTRY METHOD 09/04/2025 8:17 PM EDT [facility] Sex Hormone Binding 51.2 See Comment nmol/L LAB CHEMISTRY METHOD 09/04/2025 8:17 PM EDT [facility] Comment: FEMALES: pre-menopausal 10.8 - [...] LAB CHEMISTRY METHOD 09/04/2025 8:17 PM EDT [facility] Blood Venous blood specimen / Unknown Venipuncture / Unknown 09/04/2025 2:05 PM EDT 09/04/2025 2:05 PM EDT Nisha Calhoun [facility] BLOOD ORDERABLES Final Res ult [facility] [address] [place] [address], * 18-Iidsz-Dmzpztcoibutiaswzrd (09/04/2025 2:05 PM EDT) 17-alpha Hydroxyprogesterone 74 35 - 413 ng/dL 09/07/2025 1:24 PM EDT [facility] Comment: Test performed at [facility], [address] , [place] [address] Kaylee Doe MD, PhD - Stretcher Helper Blood Venous blood specimen / Unknown Venipuncture / Unknown 09/04/2025 2:05 PM EDT 09/04/2025 2:05 PM EDT Nisha Calhoun [facility] BLOOD ORDERABLES Final Res ult [facility] [address] [place] [address] * Prolactin (09/04/2025 2:05 PM EDT) Prolactin 24.60 See Comment ng/mL LAB CHEMISTRY METHOD 09/04/2025 4:50 PM EDT [facility] Comment: Prolactin Reference Ranges (ng/mL) Non 2.2 - 30.3 8.1 - 347.6 Postmenopausal 0.7 - 31.5 Blood Venous blood specimen / Unknown Venipuncture / Unknown 09/04/2025 2:05 PM EDT 09/04/2025 2:05 PM EDT Nisha Calhoun [facility] BLOOD ORDERABLES Final Res ult Performing Organization Address City/[facility]/ZIP Co de Phone Number [facility] [address] [place] [address], * Progesterone (09/04/2025 2:05 PM EDT) [facility] Progesterone 1.1 ng/mL LAB CHEMISTRY METHOD 09/04/2025 4:50 PM EDT [facility] Comment: PROGESTERONE REFERENCE RANGES (NG/ML) [...] EDT 09/04/2025 2:05 PM EDT Nisha Calhoun [facility] BLOOD ORDERABLES Final Res ult Performing Organization Address [facility]/ZIP Co de Phone Number [facility] [address] [place] [address], [place] [phone] * Dehydroepiandrosterone Sulfate (09/04/2025 2:05 PM EDT) DHEA Sulfate 191.8 53.8 - 334.6 mcg/dL LAB CHEMISTRY METHOD 09/04/2025 5:11 PM EDT [facility] Blood Venous blood specimen / Unknown Venipuncture / Unknown 09/04/2025 2:05 PM EDT 09/04/2025 2:05 PM EDT Darron [facility] - 09/04/2025 5:11 PM EDT Over the counter supplements containing high doses of biotin may interfere with this assay. If interference is suspected, patients shoud be retested after refraining from biotin supplements for 72 hours. Nisha Calhoun [facility] BLOOD ORDERABLES Final Res ult Performing Organization Address [facility] Co de Phone Number [facility] [address] [place] [address], [place] [phone] * Luteinizing hormone (09/04/2025 2:05 PM EDT) Luteinizing Hormone 35.3 See Comment mIU/mL LAB CHEMISTRY METHOD 09/04/2025 4:40 PM EDT [facility] Blood Venous blood specimen / Unknown Venipuncture / Unknown 09/04/2025 2:05 PM EDT 09/04/2025 2:05 PM EDT Darron [facility] - 09/04/2025 4:40 PM EDT LH REFERENCE RANGES (MIU/ML) FEMALES NORMALLY MENSTRUATING: FOLLICULAR PHASE 1.9 - 12.8 MIDCYCLE PEAK 22.8 - 76.1 LUTEAL PHASE 0.6 - 13.5 POSTMENOPAUSAL: ON HRT 1.1 - 52.4 UNTREATED 8.6 - 61.8 us Nisha Calhoun [facility] BLOOD ORDERABLES Final Res ult Performing Organization Address [facility]/ZIP Co de Phone Number [facility] [address] [place] [address], * Follicle stimulating hormone (09/04/2025 2:05 PM EDT) Pathologist [facility] Follicle Stimulating Hormone 11.9 See Comment mIU/mL LAB CHEMISTRY METHOD 09/04/2025 4:40 PM EDT [facility] Comment: FSH REFERENCE RANGES (MIU/ML) FEMALES NORMALLY MENSTRUATING: FOLLICULAR PHASE 2.3 - 12.6 MIDCYCLE PEAK 5.2 - 17.5 LUTEAL PHASE 1.7 - 9.5 POSTMENOPAUSAL: ON HRT 5.9 - 72.8 UNTREATED 12.7 - 132.2 Blood Venous blood specimen / Unknown Venipuncture / Unknown 09/04/2025 2:05 PM EDT 09/04/2025 2:05 PM EDT us Nisha Calhoun [facility] BLOOD ORDERABLES Final Res ult Performing Organization Address City/[facility] Co de Phone Number [facility] [address] [place] [address], * Chlamydia trachomatis and Neisseria gonorrhoeae molecular study (08/27/2025 1:15 PM EDT) [facility] Neisseria gonorrhoeae PCR Negative Negative LAB MOLECULAR DIAGNOSTICS METHOD 08/28/2025 10:07 AM EDT [facility] Chlamydia trachomatis PCR Negative Negative LAB MOLECULAR DIAGNOSTICS METHOD 08/28/2025 10:07 AM EDT [facility] Swab Cervix uteri structure / Unknown Non-blood Collection / Unknown 08/27/2025 1:15 PM EDT 08/27/2025 1:15 PM EDT Nisha HOROWITZ LAB MICROBIOLOGY - GENERAL ORD ERABLES Final Result [facility] [address] [place] [address], * (ABNORMAL) CBC auto differential (08/27/2025 11:41 AM EDT) WBC 11.0(H) 4.8 - 10.8 K/mcL LAB HEMETOLOGY METHOD 08/27/2025 2:23 PM EDT [facility] RBC 4.60 3.80 - 4.80 M/mcL LAB HEMETOLOGY METHOD 08/27/2025 2:23 PM EDT [facility] Hemoglobin 12.7 11.5 - 16.0 g/dL LAB HEMETOLOGY METHOD 08/27/2025 2:23 PM EDT [facility] Hematocrit 39.2 35.0 - 47.0 % LAB HEMETOLOGY METHOD 08/27/2025 2:23 PM EDT [facility] MCV 85.6 79.0 - 98.0 FL LAB HEMETOLOGY METHOD 08/27/2025 2:23 PM EDT [facility] MCH 27.7 27.0 - 32.0 pcg LAB HEMETOLOGY METHOD 08/27/2025 2:23 PM EDT [facility] MCHC 32.4 32.0 - 37.0 g/dL LAB HEMETOLOGY METHOD 08/27/2025 2:23 PM EDT [facility] RDW 13.2 11.0 - 15.0 % LAB HEMETOLOGY METHOD 08/27/2025 2:23 PM EDT [facility] Platelets 419(H) 130 - 400 K/mcL LAB HEMETOLOGY METHOD 08/27/2025 2:23 PM EDT [facility] MPV 9.2 7.0 - 11.0 FL LAB HEMETOLOGY METHOD 08/27/2025 2:23 PM EDT [facility] NRBC 0.0 <1.0 % LAB HEMETOLOGY METHOD 08/27/2025 2:23 PM [facility] NRBC Absolute 0.00 <0.10 K/mcL LAB HEMETOLOGY METHOD 08/27/2025 2:23 PM [facility] Neutrophils Relative 59.5 % LAB HEMETOLOGY METHOD 08/27/2025 2:23 PM [facility] Lymphocytes Relative 32.1 % LAB HEMETOLOGY METHOD 08/27/2025 2:23 PM [facility] Monocytes Relative 6.2 % LAB HEMETOLOGY METHOD 08/27/2025 2:23 PM [facility] Eosinophils Relative 1.6 % LAB HEMETOLOGY METHOD 08/27/2025 2:23 PM [facility] Basophils Relative 0.4 % LAB HEMETOLOGY METHOD 08/27/2025 2:23 PM [facility] Immature Granulocytes Relative 0.2 % LAB HEMETOLOGY METHOD 08/27/2025 2:23 PM [facility] Neutrophils Absolute 6.53 1.50 - 7.00 K/mcL LAB HEMETOLOGY METHOD 08/27/2025 2:23 PM [facility] Lymphocytes Absolute 3.53 1.00 - 5.00 K/mcL LAB HEMETOLOGY METHOD 08/27/2025 2:23 PM T [facility] Monocytes Absolute 0.68 0.20 - 1.00 K/mcL LAB HEMETOLOGY METHOD 08/27/2025 2:23 PM [facility] Eosinophils Absolute 0.18 0.00 - 0.50 K/mcL LAB HEMETOLOGY METHOD 08/27/2025 2:23 PM [facility] Basophils Absolute 0.04 0.00 - 0.20 K/mcL LAB HEMETOLOGY METHOD 08/27/2025 2:23 PM EDT [facility] Immature Granulocytes Absolute 0.02 0.00 - 0.03 K/mcL LAB HEMETOLOGY METHOD 08/27/2025 2:23 PM EDT [facility] Blood Venous blood specimen / Unknown Venipuncture / Unknown 08/27/2025 11:41 AM EDT 08/27/2025 11:41 AM EDT us Nisha Calhoun [facility] BLOOD ORDERABLES Final Res ult [facility] [address] [place] [address], [place] [phone] * Thyroid stimulating immunoglobulin (08/27/2025 11:41 AM EDT) Thyroid Stimulating Immunoglobulin <0.10 <0.10 IU/L 08/30/2025 3:19 PM EDT [facility] Comment: Thyroid stimulating immunoglobulins (TSI) concentrations greater than or equal to (>=) 0.55 IU/L have a clinical sensitivity of at least 98.6%, and a clinical specificity of at least 98.5%, for the differential diagnosis of Graves' Disease. TSI concentrations for patients with other thyroid or autoimmune diseases range from 0.11 to 0.39 IU/L. Test performed at [facility], [address], [place] [address] Kaylee Doe MD, PhD - Stretcher Helper Blood Venous blood specimen / Unknown Venipuncture / Unknown 08/27/2025 11:41 AM EDT 08/27/2025 11:41 AM EDT us Nisha Lopez Lj CN LAB BLOOD ORDERABLES Final Res ult [facility] [address] [place] [address] * HCG, serum, qualitative (08/27/2025 11:41 AM EDT) [facility] hCG Qual Negative Negative 08/27/2025 2:14 PM EDT [facility] Blood Venous blood specimen / Unknown Venipuncture / Unknown 08/27/2025 11:41 AM EDT 08/27/2025 11:41 AM EDT Nisha Calhoun [facility] BLOOD ORDERABLES Final Res ult [facility] [address] [place] [address], [place] [phone] * HPV with reflex genotype (11/06/2024 3:53 PM EST) [facility] HPV Negative Negative LAB MICROBIOLOGY METHOD 11/10/2024 2:02 PM EST [facility] Brushing/Spatula Cervix uteri structure / Unknown 11/06/2024 3:53 PM EST 11/09/2024 7:41 AM EST Jayde Rosenberg [facility] MOLECULAR DIAGNOSTICS ORDER JILL Final Result Performing Organization Address [facility]/ZIP Co de Phone Number [facility] [address] [place] [address], [place] [phone] * Depression Screening (01/24/2024) [facility] Depression Screening abstracted Historical Provider HEALTH MAINTENANCE Final Result * Hepatitis C Screening (07/09/2023) [facility] Hepatitis C Screening abstracted Historical Provider HEALTH MAINTENANCE Final Result from Last 3 Months or Most Recently Relevant to Health Maintenance Insurance [facility] Care Teams Computer Network Support Specialist Relationship Specialty Start Date End Date Amber Lomax MD [address] [place] [address] , [address] Physician [facility] D/B/A: [facility] [place], [place] PCP - General Internal Medicine 09/06/18
--- OUTSIDE RECORDS SUMMARY | 2025-10-08 16:09 | XMS_ITS | Clinical Summary ---
Author Organization [employer] Address [address] [place] [address] Care Team Providers Care Regional Recruiter Name Role Phone Unavailable Primary Care Provider Unavailabl e Immunizations Immunization Administration Dates Next Due DTP 05/25/1997, 4,01/23/1994,06/18 HPV, Quadrivalent 04/06/2008,12/06/2007,08/30/20 07 Hep B, Adolescent or Pediatric 06/17/1998,1996,05/25/1997 Hib (PRP-T) 08/12/1994,01/23/1994,1993 IPV 05/25/1997, 4,01/23/1994,06/18 Influenza Injectable Quadriv alant Preservative Free IIV4 MDCK 07/20/2023,08/10/2018 Influenza, IIV3, injectable 07/15/2017,1 12/11/2007,12/06/2007,09/17 Influenza, Split (incl. nica fied surface antigen) 09/24/2010 MMR 05/25/1997,08/12/1994 Meningococcal MCV4P ACYW-135 08/30/2007 Novel [id number], all formulations 09/18/2009 Pfizer Covid-19 Vaccine 12+ [...] patient's age to complete this topic Insurance [facility] (O) N PARTIAL
== END 2025-10-08 13:34 | disposition home or self-care (01) ==
PROVIDERS: PCP Internal Medicine; Visit Provider Nurse Practitioner Family
DX: Z13.9 Encounter for screening, unspecified (principal); N76.0 Acute vaginitis